=== PATIENT | female | born 1940 | race Caucasian/White ===

== ENCOUNTER 2020-08-10 17:42 | Emergency (ER) | payer MEDICARE, OTHER, SELFPAY ==
[2020-08-10] VITALS (7 sets, daily range): BP systolic 140–143; BP diastolic 61–65; PULSE 68–75; RESP 16–24; TEMP 36.8; O2SAT 93–99
--- NOTE | 2020-08-10 18:11 | DI.RAD.S_ITS ---
PROCEDURE: XR CHEST 1V INDICATIONS: dizziness headache TECHNIQUE: One view of the chest was acquired. COMPARISON: [facility], , CHEST 1 VIEW, 02/12/2017, 7:22. FINDINGS: Surgical changes and devices: Fusion hardware in visualized lower thoracic and upper lumbar spine is seen. Lungs and pleura: Lungs are clear. No pleural effusions or pneumothorax. Mediastinum: Mediastinal contours appear normal. Heart size is normal. Bones and chest wall: No suspicious bony lesions. Overlying soft tissues appear unremarkable. IMPRESSION: No acute cardiopulmonary pathology. Dictated by: David Escobar M.D. on 08/10/2020 at 17:48 Approved by: David Escobar M.D. on 08/10/2020 at 17:54
--- NOTE | 2020-08-10 18:11 | DI.CT.S_ITS ---
PROCEDURE: CT HEAD/BRAIN WO CON INDICATIONS: dizziness, headache TECHNIQUE: Noncontrast 4.5 mm thick angled axial sections acquired from the foramen magnum to the vertex, with coronal and sagittal reformats. For radiation dose reduction, the following was used: automated exposure control, adjustment of mA and/or kV according to patient size. COMPARISON: None. FINDINGS: Image quality: Excellent. CSF spaces: Basal cisterns are patent. No extra-axial fluid collections. The ventricles are symmetric in size and shape. Brain: No intracranial bleeds or masses. Old lacunar infarct in right basal ganglia is seen. There is cerebral volume loss for age, with resultant ventricular and sulcal prominence. There are periventricular and deep white matter chronic small vessel ischemic changes. There is intracranial internal carotid artery atherosclerosis. Skull and face: Calvarium and visualized facial bones appear intact, without suspicious lesions. Sinuses: Visualized sinuses and mastoids are clear. IMPRESSION: 1. No CT evidence of acute intracranial pathology. 2. Age-appropriate atrophy and mild to moderate white matter chronic ischemic microangiopathic changes. Old lacunar infarct in right basal ganglia. Dictated by: David Escobar M.D. on 08/10/2020 at 17:30 Approved by: David Escobar M.D. on 08/10/2020 at 17:31
[2020-08-10 19:13] LABS: Add Manual Diff / Slide Review NO; Basophils Absolute Auto 0 /uL (0-100); Basophils Percent Auto 1.3 % (0-2); Eosinophils Absolute Auto 100 /uL (0-450); Eosinophils Percent Auto 3.3 % (2-4); Hematocrit 39.8 % (36-46); Hemoglobin 13.4 g/dL (12.0-16.0); Lymphocytes Absolute Auto 1300 /uL (1100-4500); Lymphocytes Percent Auto 35.6 % (25-40); Mean Corpuscular HGB Conc 33.5 % (30-36); Mean Corpuscular Hemoglobin 30.5 PG (26-34); Mean Corpuscular Volume 90.9 fL (80-100); Monocytes Absolute Auto 200 /uL (0-900); Monocytes Percent Auto 5.8 % (3-14); Neutrophils Absolute Auto 1900 /uL (1500-7000); Platelet Count 201 X10^3/uL (150-400); Red Blood Cell Count 4.38 X10^6/uL (4.0-5.2); White Blood Cell Count 3.6 X10^3/uL (4.5-11.0)
[2020-08-10 19:16] LABS: Prothrombin Time 11.9 SECONDS (10.1-12.7)
[2020-08-10 19:21] LABS: Alanine Aminotransferase 25 IU/L (<35); Albumin Globulin Ratio 1.5 (1.0-2.8); Alkaline Phosphatase 65 U/L (38-126); Aspartate Aminotransferase 31 IU/L (14-36); BUN Creatinine Ratio 22.2 (6-22); Bilirubin Total 0.5 mg/dL (0.2-1.3); Blood Urea Nitrogen 12 mg/dL (7-17); Calcium 9.5 mg/dL (8.4-10.2); Carbon Dioxide 28 mmol/L (22-32); Chloride 106 mmol/L (98-107); Estimated Glomerular Filt Rate > 60.0 mL/min (>60); Globulin 2.7 g/dL (1.7-4.1); Glucose 95 mg/dL (80-110); HEMOLYSIS < 15 (0-50); Lactate (Lactic Acid) 1.9 mmol/L (0.7-2.1); Potassium 4.1 mmol/L (3.4-5.1); Sodium 140 mmol/L (137-145); Total Protein 6.7 g/dL (6.3-8.2)
--- NOTE | 2020-08-10 19:23 | ED.DIZZY ---
HPI - Dizziness General Chief Complaint: Dizziness Stated Complaint: DIZZY LIGHT HEADED UNABLE TO COMMUNICATE WELL Time Seen by Provider: 08/10/20 18:11 Source: patient and family () Mode of arrival: Wheelchair Limitations: no limitations History of Present Illness HPI Narrative: This is a 79-year-old female who arrives with complaint of dizziness. She describes as the room spinning when she moves her head or body. Patient states she had 1 prior episode many decades ago. She states this started Monday sort of gradually increasing. It has continued for the last 3 days. It sort of waxes and wanes in intensity but she states not improving maybe even worsening a little bit. Moving her head, or moving her body quickly worsens her symptoms. She has had a headache pulled on the left side that is been dull since then. She denies any new vision changes. She does have chronic diplopia when she does not wear her glasses. She denies any dysarthria but states she feels like her word-finding has been more difficult. He list is her 2nd language, her is present and states he has not appreciated any difficulty with her word-finding but states she may not have been talking when she had difficulty finding words. She denies any new numbness, tingling or weakness. She does have left lower extremity weakness and mild ataxia secondary to a L3-L4 nerve root injury/back surgery. She has not appreciated any worsening. She states her quad muscles do not work well. She has noted that she feels a little bit more unstable and uses either a walker or furniture to hang onto at home since developing her vertigo type symptoms. No fevers, no cold cough or congestion. She has had some mild nausea but no vomiting. No chest pain, no shortness of breath. Denies any urinary symptoms. She has had chronic IBS symptoms and had increasing episodes more than once a month over the last several years and more increasing episodes of diarrhea that tend to last longer. Her most recent episode ended around Monday. She takes medication for dyslipidemia, mood and anxiety, back pain as well as hypothyroidism. Her prior surgeries include L3-4 back surgery and cholecystectomy. No tobacco less of wine nightly with no illicit. She lives with her on [address] and follows with Dr. Walton. Related Data Home Medications Medication Instructions Recorded Confirmed CA PANTOTHENATE/FOLIC ACID/VIT 1 tab PO QDAY #0 12/29/10 (MULTIVITAMIN) [FOLIC ACID] #0 12/29/10 [VITAMIN D] 2,000 iu PO QDAY #0 12/29/10 escitalopram oxalate [Lexapro] 10 mg PO QDAY #0 04/30/12 cyanocobalamin (vitamin B-12) 500 mcg PO QDAY #0 07/08/16 [Vitamin B-12] Previous Rx's Medication Instructions Recorded metronidazole 0.75 % TOPICAL QDAY #135 ml 02/25/16 almotriptan malate [Axert] 12.5 mg PO SEE INSTRUCTIONS #6 tab 06/21/16 atorvastatin [Lipitor] 20 mg PO HS #90 tab 06/21/16 cyclobenzaprine 10 mg PO HS #90 tab 06/21/16 zolpidem 5 mg PO HSP PRN #30 tab 06/21/16 diphenoxylate-atropine 1 tab PO SEE INSTRUCTIONS #20 tab 07/08/16 raloxifene [Evista] 60 mg PO QDAY #30 tab 09/13/16 albuterol sulfate [Ventolin HFA] 0 puff INH PRN PRN #1 puff 11/04/16 gabapentin [Neurontin] 1,200 mg PO QID #240 tab 01/31/17 aspirin 81 mg PO BID #60 tab 02/13/17 levofloxacin [Levaquin] 500 mg PO QDAY #3 tab 02/13/17 oxycodone 5 - 10 mg PO Q3HP PRN #60 tab 02/13/17 amoxicillin 500 mg PO BID #180 cap 03/02/17 meclizine 25 mg PO TID PRN #20 tab 08/10/20 Allergies Allergy/AdvReac Type Severity Reaction Status Date / Time adhesive Allergy Severe RASH Verified 08/10/20 17:48 nickel [NICKEL] Allergy Intermediate RASH Verified 08/10/20 17:48 morphine [MORPHINE] Allergy Unknown Verified 08/10/20 17:48 haloperidol AdvReac Mild HALLUCINATI Verified 08/10/20 17:48 ONS Review of Systems Review of Systems ROS Unobtainable: All systems reviewed & are unremarkable except as noted in HPI and below Patient History Social History Smoking Status: Former smoker Smoking Status: Former smoker alcohol intake frequency: 0-2 drinks per day Substance Use Type: does not use Exam Narrative Exam Narrative: GEN: well nourished, well appearing female, alert and oriented x 3, patient appears to be in mild distress. HEENT: Atraumatic, pupils are equal round reactive to light, extraocular movements are intact, no nystagmus, nares are clear, TMs are clear with no fluid, there is no conjunctival pallor. Throat is clear without any exudates, erythema, tonsillar enlargement or uvular deviation HEART: Regular rate and rhythm without murmur, clicks, rubs. Pulses are equal in upper and lower extremities LUNGS:Lungs clear to auscultation, no wheezes, rales, crackles, chest moves symmetrically, no tachypnea accessory muscle use. ABD:bowel sounds normal, soft, non-tender, no guarding, rebound, rigidity, no masses noted, no hepatosplenomegaly :No CVA tenderness MSCL: Non-tender, no muscle atrophy, muscles strength 5/5 upper and lower extremities except for 3/5 on left leg not new for patient. NEURO:CN 2-12 intact, sensation normal,finger nose finger test normal, heel munoz test normal with right leg, difficulty with left leg which is not new for patient. Initial Vital Signs Initial Vital Signs: Vital Signs Temperature 98.2 F 08/10/20 17:45 Pulse Rate 71 08/10/20 17:45 Respiratory Rate 18 08/10/20 17:45 Blood Pressure 143/61 H 08/10/20 17:45 Pulse Oximetry 97 08/10/20 17:45 Scores NIH Stroke Scale Level of Conciousness: Alert, keenly responsive Ask month/age: Answers both questions correctly. Open/close eyes, close hand: Performs both tasks correctly Best gaze horizontal: Normal Visual andrea: No visual loss Facial palsy: Normal symetrical movement Left arm drift: No drift for full 10 sec Right arm drift: No drift for full 10 sec Left leg drift: No drift for full 5 sec Right leg drift: Some effort against gravity, cannot maintain, drifts down to bed (not new for patient) Limb ataxia: Present in one limb (not new for patient) Sensory on face/arms/legs: Normal, no sensory loss Best language: No aphasia, normal Dysarthria: Normal Extinction or inattention: No abnormality Total NIH Stroke scale score: 3 Course Orders Ordered: ED Orders 08/10/20 18:11 CT head/brain wo con Stat XR chest 1V Stat 08/10/20 19:00 Complete Blood Count AUTO DIFF Stat Comprehensive Metabolic Panel Stat Lactate (Lactic Acid) Stat Prothrombin Time INR Stat Troponin I Stat 08/10/20 19:55 CT angio head and neck Stat 08/10/20 20:00 Urinalysis and Microscopic Stat Discontinued Medications Meclizine HCl (Meclizine Hcl 12.5 Mg Tablet) 50 mg PO NOW ONE Stop: 08/10/20 19:56 Last Admin: 08/10/20 20:18 Dose: 50 mg Documented by: SANJUANA Reevaluation(s) Reevaluation #1: Patient significantly improved with meclizine. Reviewed labs, imaging and findings today. Suspect more benign cause of her vertigo and plan for meclizine prn, follow up with PCP or ENT as needed. Time: 21:12 Vital Signs Vital signs: Vital Signs - 8 hr 08/10/20 19:47 08/10/20 20:00 08/10/20 20:30 Pulse Rate 70 75 69 Respiratory Rate 16 21 Blood Pressure Pulse Oximetry 93 99 97 08/10/20 21:00 08/10/20 21:13 08/10/20 21:14 Pulse Rate 68 70 70 Respiratory Rate 24 18 Blood Pressure 140/65 Pulse Oximetry 97 96 96 MDM - Dizziness Lab Data Result diagrams: 08/10/20 19:00 08/10/20 19:00 Labs: Lab Results 08/10/20 08/10/20 08/10/20 Range/Units 19:00 19:00 19:00 WBC 3.6 L (4.5-11.0) X10^3/uL RBC 4.38 (4.0-5.2) X10^6/uL Hgb 13.4 (12.0-16.0) g/dL Hct 39.8 (36-46) % MCV 90.9 (80-100) fL MCH 30.5 (26-34) PG MCHC 33.5 (30-36) % RDW 14.0 (11.6-14.8) % Plt Count 201 (150-400) X10^3/uL Neut % (Auto) 54.0 (50-75) % Lymph % (Auto) 35.6 (25-40) % [place] % (Auto) 5.8 (3-14) % Eos % (Auto) 3.3 (2-4) % Baso % (Auto) 1.3 (0-2) % Neut # (Auto) 1900 (0029-0412) /uL Lymph # (Auto) 1300 (3989-6862) /uL [place] # (Auto) 200 (0-900) /uL Eos # (Auto) 100 (0-450) /uL Baso # (Auto) 0 (0-100) /uL PT 11.9 (10.1-12.7) SECONDS INR 1.0 (0.9-1.3) Sodium 140 (137-145) mmol/L Potassium 4.1 (3.4-5.1) mmol/L Chloride 106 (98-107) mmol/L Carbon Dioxide 28 (22-32) mmol/L BUN 12 (7-17) mg/dL Creatinine 0.54 (0.52-1.04) mg/dL Estimated GFR > 60.0 (>60) mL/min BUN/Creatinine Ratio 22.2 H (6-22) Glucose 95 (80-110) mg/dL Lactate (0.7-2.1) mmol/L Calcium 9.5 (8.4-10.2) mg/dL Total Bilirubin 0.5 (0.2-1.3) mg/dL AST 31 (14-36) IU/L ALT 25 (<35) IU/L Alkaline Phosphatase 65 (38-126) U/L Troponin I < 0.012 (0.01-0.034) ng/mL Total Protein 6.7 (6.3-8.2) g/dL Albumin 4.0 (3.5-5.0) g/dL Globulin 2.7 (1.7-4.1) g/dL Albumin/Globulin Ratio 1.5 (1.0-2.8) Urine Color Urine Appearance Urine pH (4.5-8.0) Ur Specific [place] (1.000-1.035) Urine Protein (Negative) Urine Glucose (UA) (Negative) g/dL Urine Ketones (NEGATIVE) Urine Occult Blood (Negative) Urine Nitrate (Negative) Urine Bilirubin (NEGATIVE) Urine Urobilinogen (0.2) E.U./dL Ur Leukocyte Esterase (NEGATIVE) Urine RBC (0-5/HPF) Urine WBC (0-5/HPF) Ur Transition Epith Cell (0-5/HPF) Urine Bacteria (None) Ur Culture Indicated? 08/10/20 08/10/20 Range/Units 19:00 20:00 WBC (4.5-11.0) X10^3/uL RBC (4.0-5.2) X10^6/uL Hgb (12.0-16.0) g/dL Hct (36-46) % MCV (80-100) fL MCH (26-34) PG MCHC (30-36) % RDW (11.6-14.8) % Plt Count (150-400) X10^3/uL Neut % (Auto) (50-75) % Lymph % (Auto) (25-40) % [place] % (Auto) (3-14) % Eos % (Auto) (2-4) % Baso % (Auto) (0-2) % Neut # (Auto) (5828-9616) /uL Lymph # (Auto) (1402-0403) /uL [place] # (Auto) (0-900) /uL Eos # (Auto) (0-450) /uL Baso # (Auto) (0-100) /uL PT (10.1-12.7) SECONDS INR (0.9-1.3) Sodium (137-145) mmol/L Potassium (3.4-5.1) mmol/L Chloride (98-107) mmol/L Carbon Dioxide (22-32) mmol/L BUN (7-17) mg/dL Creatinine (0.52-1.04) mg/dL Estimated GFR (>60) mL/min BUN/Creatinine Ratio (6-22) Glucose (80-110) mg/dL Lactate 1.9 (0.7-2.1) mmol/L Calcium (8.4-10.2) mg/dL Total Bilirubin (0.2-1.3) mg/dL AST (14-36) IU/L ALT (<35) IU/L Alkaline Phosphatase (38-126) U/L Troponin I (0.01-0.034) ng/mL Total Protein (6.3-8.2) g/dL Albumin (3.5-5.0) g/dL Globulin (1.7-4.1) g/dL Albumin/Globulin Ratio (1.0-2.8) Urine Color Yellow Urine Appearance Clear Urine pH 6.0 (4.5-8.0) Ur Specific [place] 1.015 (1.000-1.035) Urine Protein Negative (Negative) Urine Glucose (UA) Negative (Negative) g/dL Urine Ketones Negative (NEGATIVE) Urine Occult Blood Negative (Negative) Urine Nitrate Negative (Negative) Urine Bilirubin Negative (NEGATIVE) Urine Urobilinogen 0.2 (0.2) E.U./dL Ur Leukocyte Esterase Negative (NEGATIVE) Urine RBC None seen (0-5/HPF) Urine WBC None seen (0-5/HPF) Ur Transition Epith Cell 0-1/hpf (0-5/HPF) Urine Bacteria None seen (None) Ur Culture Indicated? Cult not indicated Imaging Data CT scan - head: Radiologist's Impression: [address] [id number] Scan ReportSigned Patient: Violeta Ray SMR#: [id number]: 9Acct:[id number]/Sex: 79 / FDate of Service: 08/10/20Loc: EDAccession Number: [id number] Procedure: CT head/brain wo con Ordering Provider: Imani Hassan D.O. PROCEDURE: CT HEAD/BRAIN WO CON INDICATIONS: dizziness, headache TECHNIQUE: Noncontrast 4.5 mm thick angled axial sections acquired from the foramen magnum to the vertex, with coronal and sagittal reformats. For radiation dose reduction, the following was used: automated exposure control, adjustment of mA and/or kV according to patient size. COMPARISON: None. FINDINGS: Image quality: Excellent. CSF spaces: Basal cisterns are patent. No extra-axial fluid collections. The ventricles are symmetric in size and shape. Brain: No intracranial bleeds or masses. Old lacunar infarct in right basal ganglia is seen. There is cerebral volume loss for age, with resultant ventricular and sulcal prominence. There are periventricular and deep white matter chronic small vessel ischemic changes. There is intracranial internal carotid artery atherosclerosis. Skull and face: Calvarium and visualized facial bones appear intact, without suspicious lesions. Sinuses: Visualized sinuses and mastoids are clear. IMPRESSION: 1. No CT evidence of acute intracranial pathology. 2. Age-appropriate atrophy and mild to moderate white matter chronic ischemic microangiopathic changes. Old lacunar infarct in right basal ganglia. Dictated by: David Escobar M.D. on 08/10/2020 at 17:30 Approved by: David Escobar M.D. on 08/10/2020 at 17:31 Chest x-ray: Radiologist's Impression: [address] [id number] ReportSigned Patient: Violeta Ray [facility]#: [id number]: 9Acct:[id number]/Sex: 79 / FDate of Service: 08/10/20Loc: EDAccession Number: [id number] Procedure: XR chest 1V Ordering Provider: Imani Hsasan D.O. PROCEDURE: XR CHEST 1V INDICATIONS: dizziness headache TECHNIQUE: One view of the chest was acquired. COMPARISON: [facility], CHEST 1 VIEW, 02/12/2017, 7:22. FINDINGS: Surgical changes and devices: Fusion hardware in visualized lower thoracic and upper lumbar spine is seen. Lungs and pleura: Lungs are clear. No pleural effusions or pneumothorax. Mediastinum: Mediastinal contours appear normal. Heart size is normal. Bones and chest wall: No suspicious bony lesions. Overlying soft tissues appear unremarkable. IMPRESSION: No acute cardiopulmonary pathology. Dictated by: David Escobar M.D. on 08/10/2020 at 17:48 Approved by: David Escobar M.D. on 08/10/2020 at 17:54 ECG Data Attestation: I personally reviewed and interpreted this ECG as follows: Interpretation: Sinus rhythm with frequent PVCs, rate of 70, NM 160, QRS is 72 and QTC of 462, no ST elevation depression noted. [facility] Narrative Medical decision making narrative: 79-year-old female with 3 days of vertigo type symptoms with 1 prior episode several decades ago. Patient has not had resolution of her symptoms over the last several days as they have continued she feels slightly unstable. Labs show a mild leukopenia which appears chronic. No other major lab abnormalities, urine is negative. Head CT shows chronic changes with possible old lacunar infarct, x-ray does not acute pathology. NIH is 3 but this is secondary to patient's chronic medical/physical changes with no new changes noted. CTA is negative for acute change, thrombosis, ect. Patient feels much better after meclizine and plan for d/c home. Follow up with PCP and ENT which patient states she has done in the past with remote prior episode. Discharge Plan Departure Patient Disposition: Home Clinical Impression: Vertigo Instructions: DI for Vertigo Activity Restrictions/Additional Instructions: Follow up with your physician this week for recheck. You may continue meclizine 1 tablet every 8 hours as needed for symptoms. You may continue home medications as prescribed. Return for new or worsening symptoms, if you feel unsafe ambulating, severe headaches, new vision changes, difficulty with speech, new chest pain, shortness of breath, passing out, persistent vomiting, new weakness, numbness or inability use her extremities or other new or concerning symptoms. Prescriptions: New meclizine 25 mg tablet 25 mg PO TID PRN (Reason: dizziness) Qty: 20 RF: 0 No Action [FOLIC ACID] Qty: 0 RF: 0 [VITAMIN D] 2,000 iu PO QDAY Qty: 0 RF: 0 CA PANTOTHENATE/FOLIC ACID/VIT (MULTIVITAMIN) 1 tab PO QDAY Qty: 0 RF: 0 escitalopram oxalate [Lexapro] 10 MG tablet 10 mg PO QDAY Qty: 0 RF: 0 metronidazole 0.75 % gel 0.75 % Topical QDAY Qty: 135 RF: 0 cyclobenzaprine 10 MG tablet 10 mg PO HS Qty: 90 RF: 3 atorvastatin [Lipitor] 20 MG tablet 20 mg PO HS Qty: 90 RF: 3 zolpidem 5 MG tablet 5 mg PO HSP PRNQty: 30 RF: 5 almotriptan malate [Axert] 12.5 MG tablet 12.5 mg PO SEE INSTRUCTIONS Qty: 6 RF: 3 diphenoxylate-atropine 2.5 MG/0.025 MG tablet 1 tab PO SEE INSTRUCTIONS Qty: 20 RF: 0 cyanocobalamin (vitamin B-12) [Vitamin B-12] 500 MCG tablet 500 mcg PO QDAY Qty: 0 RF: 0 raloxifene [Evista] 60 MG tablet 60 mg PO QDAY Qty: 30 RF: 11 albuterol sulfate [Ventolin HFA] 90 MCG/PUFF HFA aerosol inhaler 0 puff INH PRN PRNQty: 1 RF: 0 gabapentin [Neurontin] 600 MG tablet 1,200 mg PO QID Qty: 240 RF: 2 levofloxacin [Levaquin] 500 MG tablet 500 mg PO QDAY Qty: 3 RF: 0 aspirin 81 MG tablet,delayed release (DR/EC) 81 mg PO BID Qty: 60 RF: 1 oxycodone 5 MG tablet 5 - 10 mg PO Q3HP PRNQty: 60 RF: 0 amoxicillin 500 MG capsule 500 mg PO BID Qty: 180 RF: 0 Referrals: Clay Walton MD [Primary Care Provider] -
[2020-08-10 19:41] LABS: Troponin I < 0.012 ng/mL (0.01-0.034)
--- NOTE | 2020-08-10 19:55 | DI.CT.S_ITS ---
PROCEDURE: CT ANGIO HEAD AND NECK INDICATIONS: vertigo x 3 days, slowly worsening TECHNIQUE: After the administration of intravenous contrast, 1 mm thick sections acquired from the aortic arch through the [place] of [place]. Post-contrast 4.5 mm thick sections then re-acquired from the foramen magnum to the vertex. 3-dimensional qnoiprz-rgehldtyc-bboazadzij (MIP) and/or volume rendering reformats were acquired of the central intracranial vasculature and neck separately. COMPARISON: None. FINDINGS: Image quality: Excellent. BRAIN: CSF spaces: Ventricles are normal in size and shape. Basal cisterns are patent. No extra-axial fluid collections. Brain: No midline shift. No intracranial bleeds or masses. [place]-white matter interface appears intact. Skull and face: Calvarium and facial bones appear intact, without suspicious lesions. Orbits appear normal. Sinuses: Sinuses and mastoids are clear. HEAD CT ANGIOGRAPHY: Anterior circulation: Intracranial internal carotid arteries are normal in size and flow. The flow within the paired anterior cerebral arteries is normal and symmetric. The flow within the middle cerebral arteries is normal and symmetric. The anterior communicating artery is seen. No aneurysms are seen. Posterior circulation: Visualized portions of the vertebral arteries demonstrate normal caliber, and join to form a normal appearing basilar artery. Flow within the posterior cerebral arteries is normal and symmetric. No aneurysms are seen. NECK CT ANGIOGRAPHY: Carotid system: The great vessels demonstrate a conventional anatomy as they arise from the aortic arch. The origins of the common carotid arteries appear patent. The common carotid arteries demonstrate normal caliber and courses. The bifurcation regions are both widely patent. The internal carotid arteries demonstrate normal calibers and courses. Posterior circulation: The origins of the vertebral arteries both appear widely patent. The more superior extracranial portions of both vertebral arteries also demonstrate normal courses and calibers. They join to form a normal appearing basilar artery. Soft tissues: Visualized neck soft tissues demonstrate no suspicious abnormalities. Bones: No suspicious bony lesions. Visualized cervical spine appears normally aligned. IMPRESSION: No evidence of hemorrhage or ischemic injury involving the brain parenchyma. No mass lesion or mass effect found. No vascular abnormality seen. Source of current symptoms of vertigo persisting for 3 days is not Any quantitative measurements of stenosis were performed using NASCET criteria. Dictated by: Naveen Hopper M.D. on 08/10/2020 at 20:46 Approved by: Naveen Hopper M.D. on 08/10/2020 at 21:01
--- NOTE | 2020-08-10 20:05 | PC.NURSE ---
Patient has ongoing baseline weakness to left leg.
[2020-08-10 20:06] LABS: Bacteria Urine None Seen; RBC Urine None Seen (0-5/HPF); WBC Urine None Seen (0-5/HPF)
--- NOTE | 2020-08-10 20:06 | PC.NURSE ---
Patient has ongoing baseline right leg weakness from back injury.
[2020-08-10 20:14] LABS: Appearance Urine UA CLEAR; Bilirubin Urine UA NEGATIVE (NEGATIVE); Color Urine UA YELLOW; Glucose Urine UA NEGATIVE (Negative); Ketones Urine UA NEGATIVE (NEGATIVE); Leukocyte Esterase Urine UA NEGATIVE (NEGATIVE); Nitrite Urine UA NEGATIVE (Negative); Occult Blood Urine UA NEGATIVE (Negative); Protein Urine UA NEGATIVE (Negative); Specific Gravity Urine UA 1.015 (1.000-1.035); Urobilinogen Urine UA 0.2 E.U./dL (0.2)
[2020-08-10] MEDS: MECLIZINE HCL 12.5 MG TABLET 50 MG PO (20:18)
[2020-08-10 20:23] LABS: Culture Indicated Urine Cult Not Indicated; Transitional Epi Cells Urine 0-1/HPF (0-5/HPF)
== END 2020-08-10 21:21 | disposition home or self-care (01) ==
PROVIDERS: Emergency Medicine; Emergency Provider Emergency Medicine; Family Provider Family Medicine; PCP Family Medicine
DX: R42 Dizziness and giddiness (principal); R51.9 Headache, unspecified; R11.0 Nausea; M54.2 Cervicalgia; E78.5 Hyperlipidemia, unspecified; E03.9 Hypothyroidism, unspecified; F41.9 Anxiety disorder, unspecified
CPT/HCPCS: 36415; 70450; 70496; 70498; 71045; 80053; 81001; 83605; 84484; 85025; 85610; 93005; 99284; 99285; Q9967

== ENCOUNTER 2022-03-31 12:26 | Emergency (ER) | payer MEDICARE, OTHER, SELFPAY ==
[2022-03-31] VITALS (13 sets, daily range): BP systolic 113–158; BP diastolic 60–73; PULSE 59–72; RESP 12–18; TEMP 36.6; O2SAT 91–98; BMI 25.8
--- NOTE | 2022-03-31 12:23 | DI.RAD.S_ITS ---
PROCEDURE: XR CHEST 1V INDICATIONS: fall no thinners TECHNIQUE: One view of the chest was acquired. COMPARISON: [facility], CR, XR CHEST 1V, 08/10/2020, 18:20. FINDINGS: Surgical changes and devices: None. Lungs and pleura: Lungs are clear. No pleural effusions or pneumothorax. Mediastinum: Mediastinal contours appear normal. Heart size is normal. Bones and chest wall: No suspicious bony lesions. Overlying soft tissues appear unremarkable. Postoperative changes of pedicular screw and sonja fixation spanning the lower thoracic and upper lumbar spine. There is leftward curvature of the thoracic spine. IMPRESSION: No acute abnormality of the chest. Dictated by: Ry Moya M.D. on 03/31/2022 at 12:49 Approved by: Ry Moya M.D. on 03/31/2022 at 12:51
--- NOTE | 2022-03-31 12:23 | DI.CT.S_ITS ---
PROCEDURE: CT HEAD/BRAIN WO CON INDICATIONS: fall no thinners TECHNIQUE: Noncontrast 4.5 mm thick angled axial sections acquired from the foramen magnum to the vertex, with coronal and sagittal reformats. For radiation dose reduction, the following was used: automated exposure control, adjustment of mA and/or kV according to patient size. COMPARISON: [facility], CT, CT HEAD/BRAIN WO CON, 08/10/2020, 18:19. FINDINGS: Image quality: Excellent. CSF spaces: Basal cisterns are patent. No extra-axial fluid collections. The ventricles are symmetric in size and shape. Brain: No intracranial bleeds or masses. There is cerebral volume loss for age, with resultant ventricular and sulcal prominence. There are periventricular and deep white matter chronic small vessel ischemic changes. There is intracranial internal carotid artery atherosclerosis. Skull and face: Calvarium and visualized facial bones appear intact, without suspicious lesions. Sinuses: Visualized sinuses and mastoids are clear. IMPRESSION: 1. No acute intracranial abnormality. 2. Cerebral volume loss and small vessel ischemic changes. Dictated by: Ry Moya M.D. on 03/31/2022 at 13:58 Approved by: Ry Moya M.D. on 03/31/2022 at 14:00
--- NOTE | 2022-03-31 12:23 | DI.CT.S_ITS ---
PROCEDURE: CT CERVICAL SPINE WO CON INDICATIONS: fall no thinners TECHNIQUE: Noncontrast 3 mm thick sections acquired from the skull base to the T4 level. Sagittal and coronal reformats were then constructed. For radiation dose reduction, the following was used: automated exposure control, adjustment of mA and/or kV according to patient size. COMPARISON: None. FINDINGS: Image quality: Excellent. Bones: No fractures or dislocations. Visualized superior ribs are intact. Multilevel degenerative changes of the cervical spine. C5-6, C6-7, and C7-T1 have disc space narrowing, disc osteophytes, and mild foraminal stenosis bilaterally. Soft tissues: Prevertebral soft tissues are normal in thickness. No paravertebral hematomas. No apical pneumothoraces. IMPRESSION: No acute traumatic abnormality of the cervical spine. Dictated by: Ry Moya M.D. on 03/31/2022 at 14:51 Approved by: Ry Moya M.D. on 03/31/2022 at 14:53
--- NOTE | 2022-03-31 12:40 | ED_ITS ---
HPI - Head Injury <Ani Marks, [facility] - Last Filed: 03/31/22 18:00> General Chief complaint: Fall Stated complaint: Head injury,no thinners Time Seen by Provider: 03/31/22 12:35 History of Present Illness HPI Narrative: This is a 81-year-old female who lives on [address] and had a mechanical fall last evening at 21:00 and has a contusion to her right forehead and in her right temporal region with tenderness to palpation and was flown here today by [employer] [facility] for ongoing headache, nausea this morning, not feeling quite herself afterwards. She denies any other injury, states she has a right shoulder rotator cuff issue and it has been painful and she may have exacerbated it but denies any new range of motion deficits or sensations. 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 She denies any worsening of this today and endorses that her quad muscles do not work well. She denies any recent illness, denies any chest pain, shortness of breath, dysuria, abdominal pain, or other new extremity pain. E and states this is her baseline. She has history of cholecystectomy, was seen in the emergency department in 2020 for dizziness, this was her 2nd episode of this and stated that it had been increasing over 1 week. Patient states that she has had a headache and not feeling well with mild dizziness today, Related Data Home Medications Medication Instructions Recorded Confirmed CA PANTOTHENATE/FOLIC ACID/VIT 1 tab PO QDAY ##0 12/29/10 (MULTIVITAMIN) [FOLIC ACID] ##0 12/29/10 [VITAMIN D] 2,000 iu PO QDAY ##0 12/29/10 escitalopram oxalate 10 mg tablet 10 mg PO QDAY ##0 04/30/12 (Lexapro) cyanocobalamin (vitamin B-12) 500 500 mcg PO QDAY ##0 07/08/16 mcg tablet (Vitamin B-12) Previous Rx's Medication Instructions Recorded metronidazole 0.75 % topical gel 0.75 % topical QDAY #135 mL 02/25/16 almotriptan malate 12.5 mg tablet 12.5 mg PO SEE INSTRUCTIONS #6 tabs 06/21/16 (Axert) atorvastatin 20 mg tablet (Lipitor) 20 mg PO HS #90 tabs 06/21/16 cyclobenzaprine 10 mg tablet 10 mg PO HS #90 tabs 06/21/16 zolpidem 5 mg tablet 5 mg PO HSP PRN #30 tabs 06/21/16 diphenoxylate-atropine 2.5 1 tab PO SEE INSTRUCTIONS #20 tabs 07/08/16 mg-0.025 mg tablet raloxifene 60 mg tablet (Evista) 60 mg PO QDAY #30 tabs 09/13/16 albuterol sulfate 90 mcg/actuation 0 puff INH PRN PRN #1 puff 11/04/16 aerosol inhaler (Ventolin HFA) gabapentin 600 mg tablet 1,200 mg PO QID #240 tabs 01/31/17 (Neurontin) aspirin 81 mg tablet,delayed 81 mg PO BID #60 tabs 02/13/17 release levofloxacin 500 mg tablet 500 mg PO QDAY #3 tabs 02/13/17 (Levaquin) oxycodone 5 mg tablet 5 - 10 mg PO Q3HP PRN #60 tabs 02/13/17 amoxicillin 500 mg capsule 500 mg PO BID #180 caps 03/02/17 meclizine 25 mg tablet 25 mg PO TID PRN dizziness #20 tabs 08/10/20 Allergies Allergy/AdvReac Type Severity Reaction Status Date / Time adhesive Allergy Severe RASH Verified 08/10/20 17:48 nickel [NICKEL] Allergy Intermediate RASH Verified 08/10/20 17:48 morphine [MORPHINE] Allergy Unknown Verified 08/10/20 17:48 haloperidol AdvReac Mild HALLUCINATI Verified 08/10/20 17:48 ONS Review of Systems <ZENAIDA Cox - Last Filed: 03/31/22 18:00> Review of Systems Narrative: Review of systems is negative for acute abnormalities unless otherwise noted in HPI Patient History <ZENAIDA Cox - Last Filed: 03/31/22 18:00> Social History Smoking Status: Former smoker Smoking Status: Former smoker alcohol intake frequency: 0-2 drinks per day Substance Use Type: does not use Exam <ZENAIDA Cox - Last Filed: 03/31/22 18:00> Narrative Exam Narrative: Reviewed vitals signs and nursing notes. General: cooperative, comfortable, in no acute distress, well groomed, alert and oriented x3, pleasant and without dysarthria or slurred speech HEENT: symmetrical facial expressions, moist mucous membranes, EOMI, contusion and bump on the right upper forehead approximately 3 cm x 2 cm without wound, tenderness with an abrasion along her right buddhism above her maxillary bone, no tenderness to facial bones including nasal bones or mandible, without stridor, difficulty swallowing or speaking Cardiovascular: regular rate and rhythm, no peripheral edema, warm extremities Respiratory: normal effort, able to speak in complete sentences, without wheezing, stridor, or abnormal breath sounds. No retractions or tachypnea. GI: abdomen soft, nontender to palpation, nondistended, without masses, rebound tenderness or exquisite tenderness with exam. MSK: moves all extremities, neurovascularly intact, no weakness, normal tone, full range of motion of right shoulder without new weakness or strength deficits, brisk cap refill in all extremities without peripheral edema Skin: brisk capillary refill, without pallor or erythema, scab to right frontal contusion without bleeding Neuro: normal speech and cognition, A&O x3, ambulatory, clear speech, without new focal neuro deficit Psych: mental status is grossly normal, congruent mood, normal affect, pleasant and cooperative Initial Vital Signs Initial Vital Signs: Vital Signs Temperature 98 F 03/31/22 12:25 Pulse Rate 66 03/31/22 12:25 Respiratory Rate 18 03/31/22 12:25 Blood Pressure 147/68 H 03/31/22 12:25 Pulse Oximetry 98 03/31/22 12:25 Oxygen Delivery Method 03/31/22 12:25 <Faby Slaughter DO - Last Filed: 04/01/22 01:30> Initial Vital Signs Initial Vital Signs: Vital Signs Temperature 98 F 03/31/22 12:25 Pulse Rate 66 03/31/22 12:25 Respiratory Rate 18 03/31/22 12:25 Blood Pressure 147/68 H 03/31/22 12:25 Pulse Oximetry 98 03/31/22 12:25 Oxygen Delivery Method 03/31/22 12:25 <Krishna Posada MD - Last Filed: 04/01/22 07:06> Initial Vital Signs Initial Vital Signs: Vital Signs Temperature 98 F 03/31/22 12:25 Pulse Rate 66 03/31/22 12:25 Respiratory Rate 18 03/31/22 12:25 Blood Pressure 147/68 H 03/31/22 12:25 Pulse Oximetry 98 03/31/22 12:25 Oxygen Delivery Method 03/31/22 12:25 Course <ZENAIDA Cox - Last Filed: 03/31/22 18:00> Orders Ordered: Discontinued Medications Acetaminophen (Acetaminophen 325 Mg Tablet) 650 mg PO NOW ONE Stop: 03/31/22 15:08 Last Admin: 03/31/22 15:33 Dose: 650 mg Documented By: ADRIAN Bacitracin (Bacitracin Oint 0.9 Gm Pckt) 1 applic TOP NOW ONE Stop: 03/31/22 12:45 Last Admin: 03/31/22 12:49 Dose: 1 applic Documented By: ANDREAS Diphenhydramine HCl (Diphenhydramine 50 Mg/Ml Vial) 12.5 mg IV NOW ONE Stop: 03/31/22 15:08 Last Admin: 03/31/22 15:33 Dose: 12.5 mg Documented By: ADRIAN Lactated Ringer's (Lactated Ringers) 500 mls @ 1,000 mls/hr IV BOLUS ONE Stop: 03/31/22 15:36 Last Infusion: 03/31/22 16:39 Dose: 0 mls/hr Documented By: Admin: 03/31/22 15:33 Dose: 1,000 mls/hr Documented By: ADRIAN Ondansetron HCl (Ondansetron 4 Mg Odt Prepack) 1 bottle MISC SEEINSTR ONE Stop: 03/31/22 15:10 Last Admin: 03/31/22 15:32 Dose: 1 bottle Documented By: ADRIAN Vital Signs Vital signs: Vital Signs - 8 hr 03/31/22 17:30 03/31/22 18:00 03/31/22 18:03 Pulse Rate 69 69 Blood Pressure 113/65 Pulse Oximetry 96 96 03/31/22 18:03 Pulse Rate 67 Blood Pressure Pulse Oximetry 95 <Faby Slaughter DO - Last Filed: 04/01/22 01:30> Orders Ordered: Discontinued Medications Acetaminophen (Acetaminophen 325 Mg Tablet) 650 mg PO NOW ONE Stop: 03/31/22 15:08 Last Admin: 03/31/22 15:33 Dose: 650 mg Documented By: NR Bacitracin (Bacitracin Oint 0.9 Gm Pckt) 1 applic TOP NOW ONE Stop: 03/31/22 12:45 Last Admin: 03/31/22 12:49 Dose: 1 applic Documented By: ANDRAES Diphenhydramine HCl (Diphenhydramine 50 Mg/Ml Vial) 12.5 mg IV NOW ONE Stop: 03/31/22 15:08 Last Admin: 03/31/22 15:33 Dose: 12.5 mg Documented By: ADRIAN Lactated Ringer's (Lactated Ringers) 500 mls @ 1,000 mls/hr IV BOLUS ONE Stop: 03/31/22 15:36 Last Infusion: 03/31/22 16:39 Dose: 0 mls/hr Documented By: Admin: 03/31/22 15:33 Dose: 1,000 mls/hr Documented By: ADRIAN Ondansetron HCl (Ondansetron 4 Mg Odt Prepack) 1 bottle MISC SEEINSTR ONE Stop: 03/31/22 15:10 Last Admin: 03/31/22 15:32 Dose: 1 bottle Documented By: ADRIAN Vital Signs Vital signs: Vital Signs - 8 hr 03/31/22 17:30 03/31/22 18:00 03/31/22 18:03 Pulse Rate 69 69 Blood Pressure 113/65 Pulse Oximetry 96 96 03/31/22 18:03 Pulse Rate 67 Blood Pressure Pulse Oximetry 95 <Krishna Posada MD - Last Filed: 04/01/22 07:06> Orders Ordered: Discontinued Medications Acetaminophen (Acetaminophen 325 Mg Tablet) 650 mg PO NOW ONE Stop: 03/31/22 15:08 Last Admin: 03/31/22 15:33 Dose: 650 mg Documented By: ADRIAN Bacitracin (Bacitracin Oint 0.9 Gm Pckt) 1 applic TOP NOW ONE Stop: 03/31/22 12:45 Last Admin: 03/31/22 12:49 Dose: 1 applic Documented By: ANDREAS Diphenhydramine HCl (Diphenhydramine 50 Mg/Ml Vial) 12.5 mg IV NOW ONE Stop: 03/31/22 15:08 Last Admin: 03/31/22 15:33 Dose: 12.5 mg Documented By: ADRIAN Lactated Ringer's (Lactated Ringers) 500 mls @ 1,000 mls/hr IV BOLUS ONE Stop: 03/31/22 15:36 Last Infusion: 03/31/22 16:39 Dose: 0 mls/hr Documented By: Admin: 03/31/22 15:33 Dose: 1,000 mls/hr Documented By: NR Ondansetron HCl (Ondansetron 4 Mg Odt Prepack) 1 bottle MISC SEEINSTR ONE Stop: 03/31/22 15:10 Last Admin: 03/31/22 15:32 Dose: 1 bottle Documented By: NR Vital Signs Vital signs: Vital Signs - 8 hr 03/31/22 17:30 03/31/22 18:00 03/31/22 18:03 Pulse Rate 69 69 Blood Pressure 113/65 Pulse Oximetry 96 96 03/31/22 18:03 Pulse Rate 67 Blood Pressure Pulse Oximetry 95 MDM - Head Injury <ZENAIDA Cox - Last Filed: 03/31/22 18:00> Lab Data Result diagrams: 03/31/22 12:21 03/31/22 12:21 Labs: Lab Results 03/31/22 03/31/22 03/31/22 Range/Units 12:21 12:21 12:21 WBC 3.6 L (4.5-11.0) X10^3/uL RBC 4.24 (4.0-5.2) X10^6/uL Hgb 12.7 (12.0-16.0) g/dL Hct 38.4 (36-46) % MCV 90.5 (80-100) fL MCH 29.9 (26-34) PG MCHC 33.1 (30-36) % RDW 14.7 (11.6-14.8) % Plt Count 207 (150-400) X10^3/uL Neut % (Auto) 55.2 (50-75) % Lymph % (Auto) 32.5 (25-40) % [place] % (Auto) 7.1 (3-14) % Eos % (Auto) 4.0 (2-4) % Baso % (Auto) 1.2 (0-2) % Neut # (Auto) 2000 (9188-5980) /uL Lymph # (Auto) 1200 (0956-1615) /uL [place] # (Auto) 300 (0-900) /uL Eos # (Auto) 100 (0-450) /uL Baso # (Auto) 0 (0-100) /uL Sodium 140 (137-145) mmol/L Potassium 3.9 (3.4-5.1) mmol/L Chloride 107 (98-107) mmol/L Carbon Dioxide 27 (22-32) mmol/L BUN 11 (7-17) mg/dL Creatinine 0.59 (0.52-1.04) mg/dL Estimated GFR > 60 (>60) mL/min BUN/Creatinine Ratio 18.6 (6-22) Glucose 89 (80-110) mg/dL Calcium 8.5 (8.4-10.2) mg/dL Magnesium 2.1 (1.6-2.3) mg/dL Total Bilirubin 0.8 (0.2-1.3) mg/dL AST 35 (14-36) IU/L ALT 28 (<35) IU/L Alkaline Phosphatase 66 (38-126) U/L Total Creatine Kinase 71 (30-135) U/L CK-MB (CK-2) TNP CK-MB (CK-2) Rel Index TNP Troponin I < 0.012 (0.01-0.034) ng/mL Total Protein 6.6 (6.3-8.2) g/dL Albumin 3.7 (3.5-5.0) g/dL Globulin 2.9 (1.7-4.1) g/dL Albumin/Globulin Ratio 1.3 (1.0-2.8) Urine RBC (0-5/HPF) Urine WBC (0-5/HPF) Ur Squamous Epith Cells (0-5/HPF) Urine Bacteria (None) Ur Culture Indicated? 03/31/22 Range/Units 15:35 WBC (4.5-11.0) X10^3/uL RBC (4.0-5.2) X10^6/uL Hgb (12.0-16.0) g/dL Hct (36-46) % MCV (80-100) fL MCH (26-34) PG MCHC (30-36) % RDW (11.6-14.8) % Plt Count (150-400) X10^3/uL Neut % (Auto) (50-75) % Lymph % (Auto) (25-40) % [place] % (Auto) (3-14) % Eos % (Auto) (2-4) % Baso % (Auto) (0-2) % Neut # (Auto) (3576-8836) /uL Lymph # (Auto) (3222-1239) /uL [place] # (Auto) (0-900) /uL Eos # (Auto) (0-450) /uL Baso # (Auto) (0-100) /uL Sodium (137-145) mmol/L Potassium (3.4-5.1) mmol/L Chloride (98-107) mmol/L Carbon Dioxide (22-32) mmol/L BUN (7-17) mg/dL Creatinine (0.52-1.04) mg/dL Estimated GFR (>60) mL/min BUN/Creatinine Ratio (6-22) Glucose (80-110) mg/dL Calcium (8.4-10.2) mg/dL Magnesium (1.6-2.3) mg/dL Total Bilirubin (0.2-1.3) mg/dL AST (14-36) IU/L ALT (<35) IU/L Alkaline Phosphatase (38-126) U/L Total Creatine Kinase (30-135) U/L CK-MB (CK-2) CK-MB (CK-2) Rel Index Troponin I (0.01-0.034) ng/mL Total Protein (6.3-8.2) g/dL Albumin (3.5-5.0) g/dL Globulin (1.7-4.1) g/dL Albumin/Globulin Ratio (1.0-2.8) Urine RBC None seen (0-5/HPF) Urine WBC None seen (0-5/HPF) Ur Squamous Epith Cells None seen (0-5/HPF) Urine Bacteria None seen (None) Ur Culture Indicated? Culture not indicate Urine Dip Bedside Urine Glucose Negative Bedside Urine Bilirubin - Negative Bedside Urine Ketone - Negative Urine Specific [place] 1.010 Bedside Urine Occult Blood - Negative Bedside Urine pH 7.0 Bedside Urine Protein - Negative Bedside Urine Urobilinogen - Negative Bedside Urine Nitrite - Negative Bedside Urine Leukocytes - Negative Esterase Imaging Data CT scan - head: Radiologist's Impression: Radiology report did not carry over, no acute intracranial abnormality, cerebral volume loss and small vessel ischemic changes. Chest x-ray: Radiologist's Impression: Radiology report did not carry over, no acute abnormality of the chest CT - cervical spine: Radiologist's Impression: CT cervical spine report did not carry over, report impression states no acute traumatic abnormality of the cervical spine. Extremity x-ray #1: Radiologist's Impression: PROCEDURE:? XR SHOULDER RT MIN 2V ? INDICATIONS:? shoulder pain after fall/baseline rotator cuff injury ? TECHNIQUE:? 3 views of the shoulder were acquired.? ? COMPARISON:? None. ? FINDINGS:? ? Bones:? No fractures or dislocations.? No suspicious bony lesions.? Visualized ribs appear intact.? The right acromioclavicular joint has degenerative changes. ? Soft tissues:? No suspicious soft tissue calcifications.? ? IMPRESSION:? 1. No acute traumatic abnormality. 2. Degenerative changes of the right acromioclavicular joint.? ? ? Dictated by: Ry Moya M.D. on 03/31/2022 at 13:55 ? ? Approved by: Ry Moya M.D. on 03/31/2022 at 13:57 ? ECG Data Interpretation: EKG independently reviewed by myself at 1243 reveals normal sinus rhythm at [] bpm with regular axis and intervals. No STEMI, ST segment changes, arrhythmia, or acute ischemic changes. MDM Narrative Medical decision making narrative: This is an 81-year-old female who presents to the emergency department via air lift from [place] after a mechanical fall last night where she hit the right side of her forehead and temporal lobe sustaining a contusion to the right side of her forehead and temporal lobe. She complained of a headache, had nausea this morning and presumed concussion. Head CT, cervical spine CT were without any acute abnormalities, chest x-ray did not show any acute abnormalities either, right shoulder x-ray shows no acute traumatic abnormality with degenerative changes of the right acromioclavicular joint. Patient did not have any vomiting, her headache was treated with 500 of LR, Tylenol, and Benadryl and states that she feels much better. Her came to pick her up and she was discharged without any neuro deficits, difficulty walking or other findings. Her lab work is unremarkable, urine does not show any signs of infection, EKGs without any ST changes or concerning arrhythmia. Patient tripped on her left leg which at baseline is weaker than the right, states this happens easily and uses a walker at baseline. Patient understands to follow-up with her primary care provider as needed. Patient is appropriate and amenable to discharge home. Vital signs are stable on repeat examination is unremarkable. Patient has been informed of results. Patient has been given strict return to ER precautions for any new or worsening symptoms. Patient understands to follow up closely with outpatient providers as instructed. Patient understands plan and agrees to discharge home. All questions and concerns answered at this time. <Faby Slaughter, - Last Filed: 04/01/22 01:30> Lab Data Labs: Lab Results 03/31/22 03/31/22 03/31/22 Range/Units 12:21 12:21 12:21 WBC 3.6 L (4.5-11.0) X10^3/uL RBC 4.24 (4.0-5.2) X10^6/uL Hgb 12.7 (12.0-16.0) g/dL Hct 38.4 (36-46) % MCV 90.5 (80-100) fL MCH 29.9 (26-34) PG MCHC 33.1 (30-36) % RDW 14.7 (11.6-14.8) % Plt Count 207 (150-400) X10^3/uL Neut % (Auto) 55.2 (50-75) % Lymph % (Auto) 32.5 (25-40) % [place] % (Auto) 7.1 (3-14) % Eos % (Auto) 4.0 (2-4) % Baso % (Auto) 1.2 (0-2) % Neut # (Auto) 2000 (9504-1811) /uL Lymph # (Auto) 1200 (8297-7861) /uL [place] # (Auto) 300 (0-900) /uL Eos # (Auto) 100 (0-450) /uL Baso # (Auto) 0 (0-100) /uL Sodium 140 (137-145) mmol/L Potassium 3.9 (3.4-5.1) mmol/L Chloride 107 (98-107) mmol/L Carbon Dioxide 27 (22-32) mmol/L BUN 11 (7-17) mg/dL Creatinine 0.59 (0.52-1.04) mg/dL Estimated GFR > 60 (>60) mL/min BUN/Creatinine Ratio 18.6 (6-22) Glucose 89 (80-110) mg/dL Calcium 8.5 (8.4-10.2) mg/dL Magnesium 2.1 (1.6-2.3) mg/dL Total Bilirubin 0.8 (0.2-1.3) mg/dL AST 35 (14-36) IU/L ALT 28 (<35) IU/L Alkaline Phosphatase 66 (38-126) U/L Total Creatine Kinase 71 (30-135) U/L CK-MB (CK-2) TNP CK-MB (CK-2) Rel Index TNP Troponin I < 0.012 (0.01-0.034) ng/mL Total Protein 6.6 (6.3-8.2) g/dL Albumin 3.7 (3.5-5.0) g/dL Globulin 2.9 (1.7-4.1) g/dL Albumin/Globulin Ratio 1.3 (1.0-2.8) Urine RBC (0-5/HPF) Urine WBC (0-5/HPF) Ur Squamous Epith Cells (0-5/HPF) Urine Bacteria (None) Ur Culture Indicated? 03/31/22 Range/Units 15:35 WBC (4.5-11.0) X10^3/uL RBC (4.0-5.2) X10^6/uL Hgb (12.0-16.0) g/dL Hct (36-46) % MCV (80-100) fL MCH (26-34) PG MCHC (30-36) % RDW (11.6-14.8) % Plt Count (150-400) X10^3/uL Neut % (Auto) (50-75) % Lymph % (Auto) (25-40) % [place] % (Auto) (3-14) % Eos % (Auto) (2-4) % Baso % (Auto) (0-2) % Neut # (Auto) (0285-3633) /uL Lymph # (Auto) (3375-5058) /uL [place] # (Auto) (0-900) /uL Eos # (Auto) (0-450) /uL Baso # (Auto) (0-100) /uL Sodium (137-145) mmol/L Potassium (3.4-5.1) mmol/L Chloride (98-107) mmol/L Carbon Dioxide (22-32) mmol/L BUN (7-17) mg/dL Creatinine (0.52-1.04) mg/dL Estimated GFR (>60) mL/min BUN/Creatinine Ratio (6-22) Glucose (80-110) mg/dL Calcium (8.4-10.2) mg/dL Magnesium (1.6-2.3) mg/dL Total Bilirubin (0.2-1.3) mg/dL AST (14-36) IU/L ALT (<35) IU/L Alkaline Phosphatase (38-126) U/L Total Creatine Kinase (30-135) U/L CK-MB (CK-2) CK-MB (CK-2) Rel Index Troponin I (0.01-0.034) ng/mL Total Protein (6.3-8.2) g/dL Albumin (3.5-5.0) g/dL Globulin (1.7-4.1) g/dL Albumin/Globulin Ratio (1.0-2.8) Urine RBC None seen (0-5/HPF) Urine WBC None seen (0-5/HPF) Ur Squamous Epith Cells None seen (0-5/HPF) Urine Bacteria None seen (None) Ur Culture Indicated? Culture not indicate Urine Dip Bedside Urine Glucose Negative Bedside Urine Bilirubin - Negative Bedside Urine Ketone - Negative Urine Specific [place] 1.010 Bedside Urine Occult Blood - Negative Bedside Urine pH 7.0 Bedside Urine Protein - Negative Bedside Urine Urobilinogen - Negative Bedside Urine Nitrite - Negative Bedside Urine Leukocytes - Negative Esterase <Krishna Posada MD - Last Filed: 04/01/22 07:06> Lab Data Labs: Lab Results 03/31/22 03/31/22 03/31/22 Range/Units 12:21 12:21 12:21 WBC 3.6 L (4.5-11.0) X10^3/uL RBC 4.24 (4.0-5.2) X10^6/uL Hgb 12.7 (12.0-16.0) g/dL Hct 38.4 (36-46) % MCV 90.5 (80-100) fL MCH 29.9 (26-34) PG MCHC 33.1 (30-36) % RDW 14.7 (11.6-14.8) % Plt Count 207 (150-400) X10^3/uL Neut % (Auto) 55.2 (50-75) % Lymph % (Auto) 32.5 (25-40) % [place] % (Auto) 7.1 (3-14) % Eos % (Auto) 4.0 (2-4) % Baso % (Auto) 1.2 (0-2) % Neut # (Auto) 2000 (6665-8975) /uL Lymph # (Auto) 1200 (7151-8562) /uL [place] # (Auto) 300 (0-900) /uL Eos # (Auto) 100 (0-450) /uL Baso # (Auto) 0 (0-100) /uL Sodium 140 (137-145) mmol/L Potassium 3.9 (3.4-5.1) mmol/L Chloride 107 (98-107) mmol/L Carbon Dioxide 27 (22-32) mmol/L BUN 11 (7-17) mg/dL Creatinine 0.59 (0.52-1.04) mg/dL Estimated GFR > 60 (>60) mL/min BUN/Creatinine Ratio 18.6 (6-22) Glucose 89 (80-110) mg/dL Calcium 8.5 (8.4-10.2) mg/dL Magnesium 2.1 (1.6-2.3) mg/dL Total Bilirubin 0.8 (0.2-1.3) mg/dL AST 35 (14-36) IU/L ALT 28 (<35) IU/L Alkaline Phosphatase 66 (38-126) U/L Total Creatine Kinase 71 (30-135) U/L CK-MB (CK-2) TNP CK-MB (CK-2) Rel Index TNP Troponin I < 0.012 (0.01-0.034) ng/mL Total Protein 6.6 (6.3-8.2) g/dL Albumin 3.7 (3.5-5.0) g/dL Globulin 2.9 (1.7-4.1) g/dL Albumin/Globulin Ratio 1.3 (1.0-2.8) Urine RBC (0-5/HPF) Urine WBC (0-5/HPF) Ur Squamous Epith Cells (0-5/HPF) Urine Bacteria (None) Ur Culture Indicated? 09/22/22 Range/Units 15:35 WBC (4.5-11.0) X10^3/uL RBC (4.0-5.2) X10^6/uL Hgb (12.0-16.0) g/dL Hct (36-46) % MCV (80-100) fL MCH (26-34) PG MCHC (30-36) % RDW (11.6-14.8) % Plt Count (150-400) X10^3/uL Neut % (Auto) (50-75) % Lymph % (Auto) (25-40) % [place] % (Auto) (3-14) % Eos % (Auto) (2-4) % Baso % (Auto) (0-2) % Neut # (Auto) (1236-5253) /uL Lymph # (Auto) (9685-0430) /uL [place] # (Auto) (0-900) /uL Eos # (Auto) (0-450) /uL Baso # (Auto) (0-100) /uL Sodium (137-145) mmol/L Potassium (3.4-5.1) mmol/L Chloride (98-107) mmol/L Carbon Dioxide (22-32) mmol/L BUN (7-17) mg/dL Creatinine (0.52-1.04) mg/dL Estimated GFR (>60) mL/min BUN/Creatinine Ratio (6-22) Glucose (80-110) mg/dL Calcium (8.4-10.2) mg/dL Magnesium (1.6-2.3) mg/dL Total Bilirubin (0.2-1.3) mg/dL AST (14-36) IU/L ALT (<35) IU/L Alkaline Phosphatase (38-126) U/L Total Creatine Kinase (30-135) U/L CK-MB (CK-2) CK-MB (CK-2) Rel Index Troponin I (0.01-0.034) ng/mL Total Protein (6.3-8.2) g/dL Albumin (3.5-5.0) g/dL Globulin (1.7-4.1) g/dL Albumin/Globulin Ratio (1.0-2.8) Urine RBC None seen (0-5/HPF) Urine WBC None seen (0-5/HPF) Ur Squamous Epith Cells None seen (0-5/HPF) Urine Bacteria None seen (None) Ur Culture Indicated? Culture not indicate Urine Dip Bedside Urine Glucose Negative Bedside Urine Bilirubin - Negative Bedside Urine Ketone - Negative Urine Specific [place] 1.010 Bedside Urine Occult Blood - Negative Bedside Urine pH 7.0 Bedside Urine Protein - Negative Bedside Urine Urobilinogen - Negative Bedside Urine Nitrite - Negative Bedside Urine Leukocytes - Negative Esterase Discharge Plan Departure Patient Disposition: Home Clinical Impression: Concussion without loss of consciousness Qualifiers: Encounter type: initial encounter Qualified Code(s): S06.0X0A - Concussion without loss of consciousness, initial encounter Fall Qualifiers: Encounter type: initial encounter Qualified Code(s): W19.XXXA - Unspecified fall, initial encounter Instructions: Concussion, How to Prevent Falls Activity Restrictions/Additional Instructions: *You have been diagnosed with a fall, head injury with concussion. Please continue to take Tylenol 500 mg every 5 hours as needed for your pain, please do not have any exertional activities until your headache and your nausea improve. Please continue to rest until your headache and any other associated symptoms like fatigue, difficulty concentrating, sensitivity to light or sound, or dizziness go way. You have concussion symptoms which tend to worsen with activity, dehydration, or stimulation. Please take it easy at home, *What to do: *Please continue to take your regular medications as directed. [ ] New medication prescriptions sent to your pharmacy: [ ] [ ] New medication written as a paper prescription [ ] No new medications given *Please follow up with your primary care provider in 2-3 days, call for an appointment. Let them know you were seen in the Emergency Department and that we asked that you be seen for follow-up. We will electronically transmit a record of today's note if your PCP is in our system *If you do not have a primary care provider please contact [phone] to establish care with one of the [facility] primary care providers. *Return to Emergency Department if you should have any new, worsening, or concerning symptoms, such as [fever greater than 101F, chills, worsening pain, persistent vomiting or other bothersome symptoms]. Prescriptions: No Action [FOLIC ACID] Qty: 0 [VITAMIN D] 2,000 iu PO QDAY Qty: 0 CA PANTOTHENATE/FOLIC ACID/VIT (MULTIVITAMIN) 1 tab PO QDAY Qty: 0 escitalopram oxalate [Lexapro] 10 MG tablet 10 mg PO QDAY Qty: 0 metronidazole 0.75 % gel 0.75 % Topical QDAY Qty: 135 0RF cyclobenzaprine 10 MG tablet 10 mg PO HS Qty: 90 3RF atorvastatin [Lipitor] 20 MG tablet 20 mg PO HS Qty: 90 3RF zolpidem 5 MG tablet 5 mg PO HSP PRNQty: 30 5RF almotriptan malate [Axert] 12.5 MG tablet 12.5 mg PO SEE INSTRUCTIONS Qty: 6 3RF diphenoxylate-atropine 2.5 MG/0.025 MG tablet 1 tab PO SEE INSTRUCTIONS Qty: 20 0RF cyanocobalamin (vitamin B-12) [Vitamin B-12] 500 MCG tablet 500 mcg PO QDAY Qty: 0 raloxifene [Evista] 60 MG tablet 60 mg PO QDAY Qty: 30 11RF albuterol sulfate [Ventolin HFA] 90 MCG/PUFF HFA aerosol inhaler 0 puff INH PRN PRNQty: 1 0RF gabapentin [Neurontin] 600 MG tablet 1,200 mg PO QID Qty: 240 2RF levofloxacin [Levaquin] 500 MG tablet 500 mg PO QDAY Qty: 3 0RF aspirin 81 MG tablet,delayed release (DR/EC) 81 mg PO BID Qty: 60 1RF oxycodone 5 MG tablet 5 - 10 mg PO Q3HP PRNQty: 60 0RF amoxicillin 500 MG capsule 500 mg PO BID Qty: 180 0RF meclizine 25 mg tablet 25 mg PO TID PRN (Reason: dizziness) Qty: 20 0RF Referrals: Clay Walton MD [Family Provider] - Visit Report Forms: Patient Portal/API <Faby Slaughter DO - Last Filed: 04/01/22 01:30> Cosign ED Attending Cosignkaron Attestation: Kasandra--I was not here for this patient, I had nothing to do with this patient's care. <Krishna Posada MD - Last Filed: 04/01/22 07:06> Cosign ED Attending Serge Attestation: Kasandra--I was not here for this patient, I had nothing to do with this patient's care. I was immediately available in the department for consultation. ?This documentation has been reviewed and I agree with assessment and plan. Supervised by Krishna Posada MD
--- NOTE | 2022-03-31 12:44 | DI.RAD.S_ITS ---
PROCEDURE: XR SHOULDER RT MIN 2V INDICATIONS: shoulder pain after fall/baseline rotator cuff injury TECHNIQUE: 3 views of the shoulder were acquired. COMPARISON: None. FINDINGS: Bones: No fractures or dislocations. No suspicious bony lesions. Visualized ribs appear intact. The right acromioclavicular joint has degenerative changes. Soft tissues: No suspicious soft tissue calcifications. IMPRESSION: 1. No acute traumatic abnormality. 2. Degenerative changes of the right acromioclavicular joint. Dictated by: Ry Moya M.D. on 03/31/2022 at 13:55 Approved by: Ry Moya M.D. on 03/31/2022 at 13:57
[2022-03-31 12:46] LABS: Add Manual Diff / Slide Review NO; Basophils Absolute Auto 0 /uL (0-100); Basophils Percent Auto 1.2 % (0-2); Eosinophils Absolute Auto 100 /uL (0-450); Hematocrit 38.4 % (36-46); Hemoglobin 12.7 g/dL (12.0-16.0); Lymphocytes Absolute Auto 1200 /uL (1100-4500); Lymphocytes Percent Auto 32.5 % (25-40); Mean Corpuscular HGB Conc 33.1 % (30-36); Mean Corpuscular Hemoglobin 29.9 PG (26-34); Mean Corpuscular Volume 90.5 fL (80-100); Monocytes Absolute Auto 300 /uL (0-900); Monocytes Percent Auto 7.1 % (3-14); Neutrophils Absolute Auto 2000 /uL (1500-7000); Neutrophils Percent Auto 55.2 % (50-75); Platelet Count 207 X10^3/uL (150-400); Red Blood Cell Count 4.24 X10^6/uL (4.0-5.2); Red Cell Distribution Width 14.7 % (11.6-14.8); White Blood Cell Count 3.6 X10^3/uL (4.5-11.0)
[2022-03-31] MEDS: BACITRACIN OINT 0.9 GM PCKT 1 APPLIC TOP (12:49)
[2022-03-31 13:03] LABS: Creatine Kinase 71 U/L (30-135)
[2022-03-31 13:05] LABS: Alanine Aminotransferase 28 IU/L (<35); Albumin 3.7 g/dL (3.5-5.0); Albumin Globulin Ratio 1.3 (1.0-2.8); Alkaline Phosphatase 66 U/L (38-126); Aspartate Aminotransferase 35 IU/L (14-36); BUN Creatinine Ratio 18.6 (6-22); Bilirubin Total 0.8 mg/dL (0.2-1.3); Blood Urea Nitrogen 11 mg/dL (7-17); Calcium 8.5 mg/dL (8.4-10.2); Carbon Dioxide 27 mmol/L (22-32); Chloride 107 mmol/L (98-107); Estimated Glomerular Filt Rate > 60 mL/min (>60); Globulin 2.9 g/dL (1.7-4.1); Glucose 89 mg/dL (80-110); HEMOLYSIS < 15 (0-50); Magnesium 2.1 mg/dL (1.6-2.3); Potassium 3.9 mmol/L (3.4-5.1); Sodium 140 mmol/L (137-145); Total Protein 6.6 g/dL (6.3-8.2)
[2022-03-31 13:15] LABS: Troponin I < 0.012 ng/mL (0.01-0.034)
[2022-03-31] MEDS: ONDANSETRON 4 MG ODT PREPACK 1 BOTTLE MISC (15:32)
[2022-03-31] MEDS: LACTATED RINGERS 500 ML 1000 ML IV (15:33)
[2022-03-31] MEDS: diphenhydrAMINE 50 MG/ML VIAL 12.5 MG IV (15:33)
[2022-03-31] MEDS: ACETAMINOPHEN 325 MG TABLET 650 MG PO (15:33)
[2022-03-31 16:22] LABS: Bacteria Urine None Seen; RBC Urine None Seen (0-5/HPF); Squamous Epithelial Cell Urine None Seen (0-5/HPF); WBC Urine None Seen (0-5/HPF)
== END 2022-03-31 18:15 | disposition home or self-care (01) ==
PROVIDERS: Emergency Provider Nurse Practitioner Critical Care Medicine; Family Provider Family Medicine
DX: S06.0X0A Concussion without loss of consciousness, initial encounter (principal); M25.511 Pain in right shoulder; W19.XXXA Unspecified fall, initial encounter; R03.0 Elevated blood-pressure reading, without diagnosis of hypertension
CPT/HCPCS: 36415; 70450; 71045; 72125; 73030; 80053; 81003; 81015; 82550; 83735; 84484; 85025; 87086; 93005; 93010; 96361; 96374; 99284; 99285; J1200

== ENCOUNTER 2022-05-03 14:32 | Emergency (ER) | payer MEDICARE, OTHER, SELFPAY ==
[2022-05-03] VITALS (13 sets, daily range): BP systolic 125–152; BP diastolic 60–79; PULSE 66–76; RESP 18–20; TEMP 36.9; O2SAT 92–98; BMI 26.9
--- NOTE | 2022-05-03 14:47 | ED_ITS ---
HPI - Fall General Chief Complaint: Fall Stated Complaint: GLF Lt. Hip pain Time Seen by Provider: 05/03/22 14:46 Source: patient and EMS Mode of arrival: EMS Limitations: no limitations History of Present Illness HPI Narrative: This is an 81-year-old female with mood and anxiety disorder, hypothyroidism, dyslipidemia chronic back pain with left lower extremity weakness from L3-4 nerve root injury remotely. Patient states today she was turning to grab her walker in the bathroom by the sink lost her balance and fell onto her left hip leg area she states she hit her head a little bit but not very hard on the c abinets. She denies any aspirin, Plavix or other anticoagulants patient denies any other injuries besides her left hip. She states she can move it it is painful, she was able to scoot herself to the bedroom call for assistance to get up off the floor she is able to walk with her walker but only toe-touch weight- bearing anything else is too painful. She has some chronic paresthesias in that leg and weakness she does not appreciate any new change. She does not appreciate significant increase in her back pain. Patient states that she could move both legs okay. She denies any chest pain or shortness of breath, no new neck or back pain. No nausea or vomiting. Patient denies any GI or urinary symptoms. She has had multiple back surgeries and states she had an iliac artery repair after it was accidentally nicked during her 1st back surgery, she is had Alexis rods. Former tobacco, occasional alcohol, no illicit. Patient lives on [address] with her . 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 Related Data Home Medications Medication Instructions Recorded Confirmed CA PANTOTHENATE/FOLIC ACID/VIT 1 tab PO QDAY ##0 12/29/10 (MULTIVITAMIN) [FOLIC ACID] ##0 12/29/10 [VITAMIN D] 2,000 iu PO QDAY ##0 12/29/10 escitalopram oxalate 10 mg tablet 10 mg PO QDAY ##0 04/30/12 (Lexapro) cyanocobalamin (vitamin B-12) 500 500 mcg PO QDAY ##0 07/08/16 mcg tablet (Vitamin B-12) Previous Rx's Medication Instructions Recorded metronidazole 0.75 % topical gel 0.75 % topical QDAY #135 mL 02/25/16 almotriptan malate 12.5 mg tablet 12.5 mg PO SEE INSTRUCTIONS #6 tabs 06/21/16 (Axert) atorvastatin 20 mg tablet (Lipitor) 20 mg PO HS #90 tabs 06/21/16 cyclobenzaprine 10 mg tablet 10 mg PO HS #90 tabs 06/21/16 zolpidem 5 mg tablet 5 mg PO HSP PRN #30 tabs 06/21/16 diphenoxylate-atropine 2.5 1 tab PO SEE INSTRUCTIONS #20 tabs 07/08/16 mg-0.025 mg tablet raloxifene 60 mg tablet (Evista) 60 mg PO QDAY #30 tabs 09/13/16 albuterol sulfate 90 mcg/actuation 0 puff INH PRN PRN #1 puff 11/04/16 aerosol inhaler (Ventolin HFA) gabapentin 600 mg tablet 1,200 mg PO QID #240 tabs 01/31/17 (Neurontin) aspirin 81 mg tablet,delayed 81 mg PO BID #60 tabs 02/13/17 release levofloxacin 500 mg tablet 500 mg PO QDAY #3 tabs 02/13/17 (Levaquin) oxycodone 5 mg tablet 5 - 10 mg PO Q3HP PRN #60 tabs 02/13/17 amoxicillin 500 mg capsule 500 mg PO BID #180 caps 03/02/17 meclizine 25 mg tablet 25 mg PO TID PRN dizziness #20 tabs 08/10/20 Allergies Allergy/AdvReac Type Severity Reaction Status Date / Time adhesive Allergy Severe RASH Verified 08/10/20 17:48 nickel [NICKEL] Allergy Intermediate RASH Verified 08/10/20 17:48 morphine [MORPHINE] Allergy Unknown Verified 08/10/20 17:48 haloperidol AdvReac Mild HALLUCINATI Verified 08/10/20 17:48 ONS Review of Systems Review of Systems ROS Unobtainable: All systems reviewed & are unremarkable except as noted in HPI and below Patient History Social History Smoking Status: Former smoker Smoking Status: Former smoker alcohol intake frequency: 0-2 drinks per day Substance Use Type: does not use Exam Narrative Exam Narrative: GEN: backboard prior to arrival. Patient appears in mild distress. HEAD: No evidence of trauma, no raccoon/Hollis sign. NECK: Nontender, painless range of motion, trachea midline [Negative/positive] Nexus criteria, there is no midline line tenderness, distracting injury, altered mental status, neuro deficit, recent EtOH. EYES: PERRLA, EOMI ENT: External inspection normal, trachea is midline, TM's are normal no hem otypanum, Nares are clear, no septal hematoma, no dental or oral injury, airway is normal and with normal occlusion, No bony tenderness RESP: Chest is nontender and has symmetric movement, no ecchymosis, breath sounds are normal no crackles, wheezes or rales CVS: Heart sounds are normal, no murmur noted, No JVD. ABG/GI: Nontender, soft, normal bowel sounds, no distention, no organomegaly, pelvic rock is negative NEURO: Oriented AOx3, neuro is grossly intact, sensation and motor is normal all 4 extremities moving, cranial nerves II through XII are intact, GCS is 15 PSYCH: Normal mood and affect SKIN: Intact, warm and dry, no crepitus and without decubitus BACK: No CVA tenderness, no vertebral tenderness, no step-off's, no crepitus EXT: Atraumatic, right hip nontender, patient does have tenderness over the left hip, no other bony tenderness throughout the lower extremity,, no pedal edema, normal color and temperature, normal range of motion of extremities with normal tendon exam, 2+ pulses in all four extremities Initial Vital Signs Initial Vital Signs: Vital Signs Pulse Rate 74 05/03/22 14:38 Pulse Oximetry 98 05/03/22 14:38 Scores GCS [place] coma scale eye opening: Spontaneous [place] coma scale verbal response: Orientated [place] coma scale motor response: Obey commands [place] coma scale total score: 15 Course Orders Ordered: ED Orders 05/03/22 15:01 Chest [XR chest 1V] Stat XR hip w pel if done LT 2V Stat 05/03/22 16:19 CT pelvis wo con Stat 05/03/22 16:35 CBC Auto Diff [Complete Blood Count AUTO DIFF] Stat CMP [Comprehensive Metabolic Panel] Stat Lipase Stat PTT [Partial Thromboplastin Time] Stat Prothrombin Time INR Stat Discontinued Medications Acetaminophen (Acetaminophen 325 Mg Tablet) 975 mg PO NOW ONE Stop: 05/03/22 16:20 Last Admin: 05/03/22 18:12 Dose: 975 mg Documented By: RLS Consultations Consultation #1: Shmuel Damon: Orthopedic surgery patient CT was reviewed. Sacral insufficiency fracture can weightbear as tolerated. Time: 18:08 Vital Signs Vital signs: Vital Signs - 8 hr 05/03/22 14:40 05/03/22 18:18 05/03/22 14:38 Temperature 98.4 F Pulse Rate 74 75 74 Respiratory Rate 18 20 Blood Pressure 125/60 152/78 H Pulse Oximetry 96 95 98 Oxygen Delivery Method Room Air Room Air 05/03/22 14:40 05/03/22 14:40 05/03/22 14:45 Temperature Pulse Rate 73 71 Respiratory Rate Blood Pressure 129/60 Pulse Oximetry 98 94 Oxygen Delivery Method 05/03/22 14:45 05/03/22 15:00 05/03/22 15:00 Temperature Pulse Rate 71 Respiratory Rate 20 Blood Pressure 125/60 140/60 Pulse Oximetry 97 Oxygen Delivery Method 05/03/22 15:30 05/03/22 16:00 05/03/22 16:30 Temperature Pulse Rate 66 70 68 Respiratory Rate Blood Pressure Pulse Oximetry 95 92 93 Oxygen Delivery Method 05/03/22 17:00 05/03/22 17:30 05/03/22 18:00 Temperature Pulse Rate 69 73 75 Respiratory Rate Blood Pressure Pulse Oximetry 92 92 95 Oxygen Delivery Method 05/03/22 18:19 05/03/22 18:19 05/03/22 18:37 Temperature Pulse Rate 75 76 Respiratory Rate Blood Pressure 152/78 H 137/79 Pulse Oximetry 94 94 Oxygen Delivery Method MDM - Fall Lab Data Result diagrams: 05/03/22 16:35 05/03/22 16:35 Labs: Lab Results 05/03/22 05/03/22 05/03/22 Range/Units 16:35 16:35 16:35 WBC 3.7 L (4.5-11.0) X10^3/uL RBC 4.17 (4.0-5.2) X10^6/uL Hgb 12.7 (12.0-16.0) g/dL Hct 37.9 (36-46) % MCV 90.8 (80-100) fL MCH 30.4 (26-34) PG MCHC 33.5 (30-36) % RDW 14.5 (11.6-14.8) % Plt Count 191 (150-400) X10^3/uL Neut % (Auto) 46.7 L (50-75) % Lymph % (Auto) 40.2 H (25-40) % [place] % (Auto) 8.6 (3-14) % Eos % (Auto) 3.2 (2-4) % Baso % (Auto) 1.3 (0-2) % Neut # (Auto) 1700 (1984-1515) /uL Lymph # (Auto) 1500 (8480-0227) /uL [place] # (Auto) 300 (0-900) /uL Eos # (Auto) 100 (0-450) /uL Baso # (Auto) 0 (0-100) /uL PT 12.0 (10.1-12.7) SECONDS INR 1.0 (0.9-1.3) APTT 33 (26-36) SECONDS Sodium 140 (137-145) mmol/L Potassium 4.2 (3.4-5.1) mmol/L Chloride 106 (98-107) mmol/L Carbon Dioxide 28 (22-32) mmol/L BUN 15 (7-17) mg/dL Creatinine 0.60 (0.52-1.04) mg/dL Estimated GFR > 60 (>60) mL/min BUN/Creatinine Ratio 25.0 H (6-22) Glucose 72 L (80-110) mg/dL Calcium 8.8 (8.4-10.2) mg/dL Total Bilirubin 0.8 (0.2-1.3) mg/dL AST 32 (14-36) IU/L ALT 27 (<35) IU/L Alkaline Phosphatase 65 (38-126) U/L Total Protein 6.7 (6.3-8.2) g/dL Albumin 3.7 (3.5-5.0) g/dL Globulin 3.0 (1.7-4.1) g/dL Albumin/Globulin Ratio 1.2 (1.0-2.8) Lipase 46 (23-300) U/L Imaging Data Chest x-ray: Radiologist's Impression: [address] [address] XRay Report Signed Patient: Violeta Ray MR#: [id number] : 1940 Acct:[id number] Age/Sex: 81 / F Date of Service: 05/03/22 Loc: ED Accession Number: [id number] ?? Procedure: XR chest 1V Ordering Provider: Imani Hassan D.O. PROCEDURE:? XR CHEST 1V ? INDICATIONS:? left hip pain ? TECHNIQUE:? One view of the chest was acquired.? ? COMPARISON:? [facility], CR, XR CHEST 1V, 03/31/2022, 12:25. ? FINDINGS:? ? Surgical changes and devices:? Spinal fixation hardware appears intact where visualized. ? Lungs and pleura:? Lungs are clear.? No pleural effusions or pneumothorax.? ? Mediastinum:? Mediastinal contours appear normal.? Heart size is normal.? ? Bones and chest wall:? No suspicious bony lesions.? Overlying soft tissues appear unremarkable.? ? IMPRESSION:? No acute cardiopulmonary findings. ? ? Dictated by: Trini Kohler M.D. on 05/03/2022 at 15:57 ? ? Approved by: Trini Kohler M.D. on 05/03/2022 at 15:58?? Extremity x-ray #1: Radiologist's Impression: Close Pelvis CT (Signed) David Escobar - 05/03/22 Hip X-Ray (Signed) Trini Kohler - 05/03/22 Chest X-Ray (Signed) Trini Kohler - 05/03/22 Shoulder X-Ray (Signed) Ry Moya - 03/31/[address] (Signed) Ry Moya - 03/31/22 Chest X-Ray (Signed) Ry Moya - 03/31/[address] (Signed) Ry Moya - 03/31/22 Head/Neck CTA (Signed) Naveen Hopper - 08/10/[address] (Signed) David Escobar - 08/10/20 Chest X-Ray (Signed) David Escobar - 08/10/20 EKG Rpt. 08/10/20 Launch?Image [address] [address] XRay Report Signed Patient: Violeta Ray MR#: [id number] : 1940 Acct:[id number] Age/Sex: 81 / F Date of Service: 05/03/22 Loc: ED Accession Number: [id number] ?? Procedure: XR hip w pel if done LT 2V Ordering Provider: Imani Hassan D.O. PROCEDURE:? XR HIP W PEL IF DONE LT 2V ? INDICATIONS:? left hip pain ? TECHNIQUE:? AP pelvis with lateral view(s) of the left hip(s).? ? COMPARISON:? None. ? FINDINGS:? ? Bones:? Lumbosacral fixation hardware is grossly intact where visualized.? Radiolucency surrounds the left sacral screw suggesting hardware loosening.? No acute fracture or dislocation.? There is mild left hip joint space narrowing and small collar os teophytes. ? Soft tissues:? The visualized bowel gas pattern is normal.? No suspicious soft tissue calcifications.? ? ? IMPRESSION:? ? 1. Mild to moderate left hip osteoarthritis. ? 2. Questionable loosening of the left sacral fixation screw.? If further characterization is warranted, nuclear medicine scan could be used.? ? ? Dictated by: Trini Kohler M.D. on 05/03/2022 at 15:56 ? ? Approved by: Trini Kohler M.D. on 05/03/2022 at 15:57?? Pelvic CT : Radiologist's Impression: Violeta Ray??81??F??1940 ? Allergy/Adv: adhesive, nickel, morphine, haloperidol (More??) Close Pelvis CT (Signed) David Escobar - 05/03/22 Hip X-Ray (Signed) Trini Kohler - 05/03/22 Chest X-Ray (Signed) Trini Kohler - 05/03/22 Shoulder X-Ray (Signed) Ry Moya - 03/31/[address] (Signed) Ry Moya - 03/31/22 Chest X-Ray (Signed) Ry Moya - 03/31/[address] (Signed) Ry Moya - 03/31/22 Head/Neck CTA (Signed) Naveen Hopper - 08/10/[address] (Signed) David Escobar - 08/10/20 Chest X-Ray (Signed) David Escobar - 08/10/20 EKG Rpt. 08/10/20 Launch?[place] [address] CT Scan Report Signed Patient: Violeta Ray MR#: [id number] : 1940 Acct:[id number] Age/Sex: 81 / F Date of Service: 05/03/22 Loc: ED Accession Number: [id number] ?? Procedure: CT pelvis wo con Ordering Provider: Imani Hassan D.O. PROCEDURE:? CT PEL WO CON ? INDICATIONS:? sacral screw ? loosened, right hip pain ? TECHNIQUE:? Noncontrast 3 mm axial sections acquired through the bony pelvis, with coronal and sagittal reformatting.? ? COMPARISON:? [facility], CT, PELVIS WITHOUT CONTRAST, 01/17/2008, 11:27. ? FINDINGS:? Image quality:? Diagnostic.? Significant beam hardening artifacts from surgical hardware are seen.? ? Bones:? There is prior extensive fusion of lumbar sacral spine with surgical hardware in place causing significant beam hardening artifacts.? There is no gross hardware loosening or failure.? Bilateral sacral screws are grossly intact.? There is diffuse osteopenia.? Subtle cortical irregularity and disruption involving posterior lateral right sacral cortex adjacent to right sacroiliac joint is seen concerning for subtle nondisplaced fracture/insufficiency fracture series 2, image 19. No other fracture or dislocation is seen.? Osteoarthritic changes are noted throughout bony pelvis.? No evidence of avascular necrosis of femoral head. ? Soft tissues:? There is no pelvic free fluid or free air.? No abnormal bowel wall thickening or bladder wall thickening.? No pelvic lymphadenopathy by size criteria.? There is no gross presacral soft tissue swelling or edema.? Calcifications i nvolving bilateral hamstring tendon origins at ischial tuberosities consistent with calcific tendinitis. ? ? IMPRESSION:? 1. Slightly degraded study due to artifacts from surgical hardware. 2. No gross hardware loosening or failure.? Specifically, bilateral sacral screws are intact. 3. Diffuse osteopenia.? Questionable cortical irregularity involving posterior lateral cortex of right sacrum.? Insufficiency fracture cannot be excluded given patient's symptoms. 4. No other fracture or dislocation.? Osteoarthritic changes throughout bony pelvis. 5. No pelvic soft tissue abnormalities.? ? ? Dictated by: David Escobar M.D. on 05/03/2022 at 16:57 ? ? Approved by: David Escobar M.D. on 05/03/2022 at 17:08?? [facility] Narrative Medical decision making narrative: This is an 81-year-old female who had a ground level fall on her left hip she states she did hit her head she defers additional workup or CT she denies daily aspirin currently. She would her main complaint is left hip pain. She was able to move it but could not weightbear beyond toe-touch. This happened about 12:30 today patient was airlifted over from [place]. Patient on exam has possibly some mild discomfort, maybe to move her left leg without much issue. She has weakness chronically her left leg so she has some difficulty. Reviewed her findings for CT, labs and x-ray today. Patient feels that she can probably ambulate safely will do an ambulation trial and if she 60s will discharge home with plan for follow-up with orthopedic surgery, pain management as needed although patient defers anything with narcotics. She lives on [address] so returning her home today may be difficult as it is late in the day and she does not have any family or friends present yet. Patient able to ambulate. Discharge Plan Departure Patient Disposition: Home Clinical Impression: Closed sacral fracture, Fall Activity Restrictions/Additional Instructions: Your imaging today shows possible posterior right sacral insufficiency fracture. I spoke with Orthopedic surgery you are able to weightbear as tolerated. You take Tylenol up to a 1000 mg every 6 hours. If you tolerate ibuprofen you can take 600 mg every 6 hours in addition to Tylenol. Please return for new or worsening symptoms, severe headaches, new neck or back pain, persistent vomiting, new numbness, tingling or weakness, loss of bowel or bladder control or other new or concerning symptoms. Prescriptions: No Action [FOLIC ACID] Qty: 0 [VITAMIN D] 2,000 iu PO QDAY Qty: 0 CA PANTOTHENATE/FOLIC ACID/VIT (MULTIVITAMIN) 1 tab PO QDAY Qty: 0 escitalopram oxalate [Lexapro] 10 MG tablet 10 mg PO QDAY Qty: 0 metronidazole 0.75 % gel 0.75 % Topical QDAY Qty: 135 0RF cyclobenzaprine 10 MG tablet 10 mg PO HS Qty: 90 3RF atorvastatin [Lipitor] 20 MG tablet 20 mg PO HS Qty: 90 3RF zolpidem 5 MG tablet 5 mg PO HSP PRNQty: 30 5RF almotriptan malate [Axert] 12.5 MG tablet 12.5 mg PO SEE INSTRUCTIONS Qty: 6 3RF diphenoxylate-atropine 2.5 MG/0.025 MG tablet 1 tab PO SEE INSTRUCTIONS Qty: 20 0RF cyanocobalamin (vitamin B-12) [Vitamin B-12] 500 MCG tablet 500 mcg PO QDAY Qty: 0 raloxifene [Evista] 60 MG tablet 60 mg PO QDAY Qty: 30 11RF albuterol sulfate [Ventolin HFA] 90 MCG/PUFF HFA aerosol inhaler 0 puff INH PRN PRNQty: 1 0RF gabapentin [Neurontin] 600 MG tablet 1,200 mg PO QID Qty: 240 2RF levofloxacin [Levaquin] 500 MG tablet 500 mg PO QDAY Qty: 3 0RF aspirin 81 MG tablet,delayed release (DR/EC) 81 mg PO BID Qty: 60 1RF oxycodone 5 MG tablet 5 - 10 mg PO Q3HP PRNQty: 60 0RF amoxicillin 500 MG capsule 500 mg PO BID Qty: 180 0RF meclizine 25 mg tablet 25 mg PO TID PRN (Reason: dizziness) Qty: 20 0RF Referrals: Shmuel Pena MD [Physician] - Visit Report Forms: Patient Portal/API
--- NOTE | 2022-05-03 15:01 | DI.RAD.S_ITS ---
PROCEDURE: XR CHEST 1V INDICATIONS: left hip pain TECHNIQUE: One view of the chest was acquired. COMPARISON: [facility], CR, XR CHEST 1V, 03/31/2022, 12:25. FINDINGS: Surgical changes and devices: Spinal fixation hardware appears intact where visualized. Lungs and pleura: Lungs are clear. No pleural effusions or pneumothorax. Mediastinum: Mediastinal contours appear normal. Heart size is normal. Bones and chest wall: No suspicious bony lesions. Overlying soft tissues appear unremarkable. IMPRESSION: No acute cardiopulmonary findings. Dictated by: Trini Kohler M.D. on 05/03/2022 at 15:57 Approved by: Trini Kohler M.D. on 05/03/2022 at 15:58
--- NOTE | 2022-05-03 15:01 | DI.RAD.S_ITS ---
PROCEDURE: XR HIP W PEL IF DONE LT 2V INDICATIONS: left hip pain TECHNIQUE: AP pelvis with lateral view(s) of the left hip(s). COMPARISON: None. FINDINGS: Bones: Lumbosacral fixation hardware is grossly intact where visualized. Radiolucency surrounds the left sacral screw suggesting hardware loosening. No acute fracture or dislocation. There is mild left hip joint space narrowing and small collar osteophytes. Soft tissues: The visualized bowel gas pattern is normal. No suspicious soft tissue calcifications. IMPRESSION: 1. Mild to moderate left hip osteoarthritis. 2. Questionable loosening of the left sacral fixation screw. If further characterization is warranted, nuclear medicine scan could be used. Dictated by: Trini Kohler M.D. on 05/03/2022 at 15:56 Approved by: Trini Kohler M.D. on 05/03/2022 at 15:57
--- NOTE | 2022-05-03 16:19 | DI.CT.S_ITS ---
PROCEDURE: CT PEL WO CON INDICATIONS: sacral screw ? loosened, right hip pain TECHNIQUE: Noncontrast 3 mm axial sections acquired through the bony pelvis, with coronal and sagittal reformatting. COMPARISON: [facility], CT, PELVIS WITHOUT CONTRAST, 01/17/2008, 11:27. FINDINGS: Image quality: Diagnostic. Significant beam hardening artifacts from surgical hardware are seen. Bones: There is prior extensive fusion of lumbar sacral spine with surgical hardware in place causing significant beam hardening artifacts. There is no gross hardware loosening or failure. Bilateral sacral screws are grossly intact. There is diffuse osteopenia. Subtle cortical irregularity and disruption involving posterior lateral right sacral cortex adjacent to right sacroiliac joint is seen concerning for subtle nondisplaced fracture/insufficiency fracture series 2, image 19. No other fracture or dislocation is seen. Osteoarthritic changes are noted throughout bony pelvis. No evidence of avascular necrosis of femoral head. Soft tissues: There is no pelvic free fluid or free air. No abnormal bowel wall thickening or bladder wall thickening. No pelvic lymphadenopathy by size criteria. There is no gross presacral soft tissue swelling or edema. Calcifications involving bilateral hamstring tendon origins at ischial tuberosities consistent with calcific tendinitis. IMPRESSION: 1. Slightly degraded study due to artifacts from surgical hardware. 2. No gross hardware loosening or failure. Specifically, bilateral sacral screws are intact. 3. Diffuse osteopenia. Questionable cortical irregularity involving posterior lateral cortex of right sacrum. Insufficiency fracture cannot be excluded given patient's symptoms. 4. No other fracture or dislocation. Osteoarthritic changes throughout bony pelvis. 5. No pelvic soft tissue abnormalities. Dictated by: David Escobar M.D. on 05/03/2022 at 16:57 Approved by: David Escobar M.D. on 05/03/2022 at 17:08
[2022-05-03 16:40] LABS: Add Manual Diff / Slide Review NO; Basophils Absolute Auto 0 /uL (0-100); Basophils Percent Auto 1.3 % (0-2); Eosinophils Absolute Auto 100 /uL (0-450); Eosinophils Percent Auto 3.2 % (2-4); Hematocrit 37.9 % (36-46); Hemoglobin 12.7 g/dL (12.0-16.0); Lymphocytes Absolute Auto 1500 /uL (1100-4500); Lymphocytes Percent Auto 40.2 % (25-40); Mean Corpuscular HGB Conc 33.5 % (30-36); Mean Corpuscular Hemoglobin 30.4 PG (26-34); Mean Corpuscular Volume 90.8 fL (80-100); Monocytes Absolute Auto 300 /uL (0-900); Monocytes Percent Auto 8.6 % (3-14); Neutrophils Absolute Auto 1700 /uL (1500-7000); Neutrophils Percent Auto 46.7 % (50-75); Platelet Count 191 X10^3/uL (150-400); Red Blood Cell Count 4.17 X10^6/uL (4.0-5.2); Red Cell Distribution Width 14.5 % (11.6-14.8); White Blood Cell Count 3.7 X10^3/uL (4.5-11.0)
[2022-05-03 16:54] LABS: PTT Partial Thromboplastin Tim 33 SECONDS (26-36)
[2022-05-03 16:56] LABS: Alanine Aminotransferase 27 IU/L (<35); Albumin 3.7 g/dL (3.5-5.0); Albumin Globulin Ratio 1.2 (1.0-2.8); Alkaline Phosphatase 65 U/L (38-126); Aspartate Aminotransferase 32 IU/L (14-36); Bilirubin Total 0.8 mg/dL (0.2-1.3); Blood Urea Nitrogen 15 mg/dL (7-17); Calcium 8.8 mg/dL (8.4-10.2); Carbon Dioxide 28 mmol/L (22-32); Chloride 106 mmol/L (98-107); Estimated Glomerular Filt Rate > 60 mL/min (>60); Glucose 72 mg/dL (80-110); HEMOLYSIS 25 (0-50); Lipase 46 U/L (23-300); Potassium 4.2 mmol/L (3.4-5.1); Sodium 140 mmol/L (137-145); Total Protein 6.7 g/dL (6.3-8.2)
[2022-05-03] MEDS: ACETAMINOPHEN 325 MG TABLET 975 MG PO (18:12)
== END 2022-05-03 18:55 | disposition home or self-care (01) ==
PROVIDERS: Emergency Provider Emergency Medicine; Family Provider Family Medicine
DX: S32.10XA Unspecified fracture of sacrum, initial encounter for closed fracture (principal); S09.90XA Unspecified injury of head, initial encounter; W18.30XA Fall on same level, unspecified, initial encounter
CPT/HCPCS: 36415; 71045; 72192; 73502; 80053; 83690; 85025; 85610; 85730; 99283; 99284

== ENCOUNTER → 2022-11-16 11:22 | Outpatient (CLI) | payer MEDICARE, OTHER, SELFPAY ==
--- NOTE | 2022-11-16 | DI.MRI.S_ITS ---
PROCEDURE: MR CERVICAL SPINE WO CON INDICATIONS: Radiculopathy, cervical region TECHNIQUE: Noncontrast sagittal T1 spin echo and T2 fast spin echo, sagittal STIR, foraminal oblique sagittal T2 fast spin echo, and axial gradient echo or T2 fast spin echo through the cervical spine. COMPARISON: None. FINDINGS: Image quality: Excellent. Alignment and Curvature: There is normal bony alignment. Bone Marrow: Severe degenerative changes are present throughout the cervical spine including marked osteophytosis and endplate sclerosis. Spinal Cord: Visualized spinal cord has normal size and signal. No cerebellar tonsillar herniation. Paraspinous Soft Tissues: No paravertebral masses. Prevertebral soft tissues are normal in thickness. C2-C3: Mild disc desiccation and height loss. Broad-based disc bulge. No canal stenosis. Severe bilateral foraminal stenosis. C3-C4: Moderate disc desiccation and height loss. Right paracentral broad-based disc bulge with narrowing of the right lateral recess. Mild canal stenosis. Severe right and moderate left foraminal stenosis. C4-C5: Moderate disc desiccation and height loss. Broad-based disc bulge. Mild canal stenosis. Severe bilateral foraminal stenosis. C5-C6: Severe disc desiccation and height loss. Broad-based disc bulge. There is effacement of the anterior CSF space. Moderate canal stenosis. Moderate bilateral foraminal stenosis. C6-C7: Severe disc desiccation and height loss. Broad-based disc bulge. Mild canal stenosis. Moderate bilateral foraminal stenosis. C7-T1: Moderate disc desiccation and height loss. Mild bilateral foraminal stenosis. No canal stenosis. IMPRESSION: 1. Severe multilevel degenerative disc disease with moderate canal stenosis at C5-6 and mild canal stenosis at C3-4, C4-5, and C6-7. 2. Severe bilateral foraminal stenosis at C2-3 and C4-5, severe right foraminal stenosis at C3-4, moderate left foraminal stenosis at C3-4 and moderate bilateral foraminal stenosis at C5-6 and C6-7. Dictated by: Trini Kohler M.D. on 11/16/2022 at 14:46 Approved by: Trini Kohler M.D. on 11/16/2022 at 14:58
== END ==
PROVIDERS: Family Provider Family Medicine; PCP Family Medicine; Referring Provider Physical Medicine & Rehabilitation Pain Medicine; Visit Provider Physical Medicine & Rehabilitation Pain Medicine
DX: M50.11 Cervical disc disorder with radiculopathy, high cervical region (principal); M48.02 Spinal stenosis, cervical region
CPT/HCPCS: 72141

== ENCOUNTER 2023-03-18 10:40 | Emergency (ER) | payer MEDICARE, OTHER, SELFPAY ==
--- NOTE | 2023-03-18 10:52 | DI.RAD.S_ITS ---
PROCEDURE: XR TIBIA FIBULA LT 2V INDICATIONS: fall t-1. TECHNIQUE: 2 views of the tibia and fibula were acquired. COMPARISON: None. FINDINGS: Bones: No fractures or dislocations. No suspicious bony lesions. Total knee arthroplasty Soft tissues: No suspicious soft tissue calcifications or masses. IMPRESSION: Degenerative changes without fracture Approved by: Favian Saldivar M.D. on 03/18/2023 at 11:57
--- NOTE | 2023-03-18 10:52 | DI.RAD.S_ITS ---
PROCEDURE: XR HAND RT MIN 3V INDICATIONS: fall t-1. TECHNIQUE: 3 views of the hand(s) acquired. COMPARISON: None. FINDINGS: Bones: Instrumented arthrodesis noted involving the 1st interphalangeal and 1st metacarpal phalangeal joints. First carpometacarpal arthritic changes. No evidence of acute fracture. Soft tissues: No suspicious soft tissue calcifications. IMPRESSION: No acute fracture or dislocation. Instrumented arthrodesis and arthritis Approved by: Favian Saldivar M.D. on 03/18/2023 at 11:56
[2023-03-18 10:53] VITALS: BP 113/58; PULSE 72; RESP 14; TEMP 36.7; O2SAT 99; BMI 26.3
[2023-03-18] MEDS: ACETAMINOPHEN 325 MG TABLET 650 MG PO (10:59)
[2023-03-18 11:20] LABS: Add Manual Diff / Slide Review NO; Basophils Absolute Auto 0 /uL (0-100); Basophils Percent Auto 0.8 % (0-2); Eosinophils Absolute Auto 100 /uL (0-450); Eosinophils Percent Auto 1.9 % (2-4); Hemoglobin 12.8 g/dL (12.0-16.0); Lymphocytes Absolute Auto 900 /uL (1100-4500); Lymphocytes Percent Auto 20.1 % (25-40); Mean Corpuscular HGB Conc 33.6 % (30-36); Mean Corpuscular Hemoglobin 30.1 PG (26-34); Mean Corpuscular Volume 89.8 fL (80-100); Monocytes Absolute Auto 300 /uL (0-900); Monocytes Percent Auto 7.8 % (3-14); Neutrophils Absolute Auto 3100 /uL (1500-7000); Neutrophils Percent Auto 69.4 % (50-75); Platelet Count 157 X10^3/uL (150-400); Red Blood Cell Count 4.24 X10^6/uL (4.0-5.2); Red Cell Distribution Width 14.8 % (11.6-14.8); White Blood Cell Count 4.5 X10^3/uL (4.5-11.0)
[2023-03-18 11:26] LABS: Prothrombin Time 11.4 SECONDS (10.1-12.7)
[2023-03-18 11:29] LABS: PTT Partial Thromboplastin Tim 31 SECONDS (26-36)
[2023-03-18 11:34] LABS: Alanine Aminotransferase 33 IU/L (<35); Albumin 3.6 g/dL (3.5-5.0); Albumin Globulin Ratio 1.3 (1.0-2.8); Alkaline Phosphatase 57 U/L (38-126); Aspartate Aminotransferase 32 IU/L (14-36); BUN Creatinine Ratio 44.6 (6-22); Bilirubin Total 0.9 mg/dL (0.2-1.3); Blood Urea Nitrogen 25 mg/dL (7-17); Calcium 8.5 mg/dL (8.4-10.2); Carbon Dioxide 30 mmol/L (22-32); Chloride 107 mmol/L (98-107); Estimated Glomerular Filt Rate > 60 mL/min (>60); Globulin 2.7 g/dL (1.7-4.1); Glucose 77 mg/dL (80-110); HEMOLYSIS < 15 (0-50); Lipase 63 U/L (23-300); Potassium 3.9 mmol/L (3.4-5.1); Sodium 139 mmol/L (137-145); Total Protein 6.3 g/dL (6.3-8.2)
--- NOTE | 2023-03-18 12:59 | ED.FALL ---
HPI - Fall General Chief Complaint: Fall Stated Complaint: Fell and hurt left ankle and rt hand Time Seen by Provider: 03/18/23 11:00 Source: patient and family Mode of arrival: Wheelchair Limitations: no limitations History of Present Illness HPI Narrative: This is a 82-year-old female with history of dyslipidemia, chronic back pain with Alexis rods in left lower extremity weakness and pain chronically and multiple orthopedic surgeries. Patient states she fell last night about 8:00 p.m.. Patient states her left leg has been hurting her more than typical, she denies any new numbness tingling, she is chronic weakness she states she follows pretty frequently because of this. 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 She states she was having her typical leg pain, was trying to use a rolling knee scooter and fell over sideways landing on her right hand. She has pain in her right hand with some bruising as well as some pain below the knee over the fibular area. Patient states she may have bumped her head. She denies any headache no neck pain, no chest pain or shortness of breath, no back pain. No nausea or vomiting, no dysuria, urgency frequency, no diarrhea constipation, no fecal or urinary incontinence. Patient states no daily anticoagulation. Patient states she takes gabapentin daily, duloxetine, atorvastatin, Celebrex and Tylenol for pain management. She states no hypertension, diabetes, no prior stroke or heart attack. She states no new change to weakness, numbness or difficulty movement of her extremities. She is had prior bilateral knee surgery, rotator cuff, multiple back surgeries including Alexis rods, remote ectopic surgery and 1 of her parathyroids removed. No known drug allergies. No tobacco, alcohol or illicit. Her primary care is Lottie Zavala. Related Data Home Medications Medication Instructions Recorded Confirmed escitalopram oxalate 10 mg tablet 10 mg PO QDAY ##0 04/30/12 03/18/23 (Lexapro) cyanocobalamin (vitamin B-12) 500 500 mcg PO QDAY ##0 07/08/16 03/18/23 mcg tablet (Vitamin B-12) [id number] 500 1 wafer PO DAILY 03/18/23 03/18/23 mg-50 mg-300 unit-1 mg oral wafer (Calcium-Folic Acid-Vitamin D) celecoxib 200 mg capsule 400 mg PO DAILY 03/18/23 03/18/23 cyclobenzaprine 10 mg tablet 10 mg PO ONCE PM PRN muscle spasm 03/18/23 03/18/23 duloxetine 30 mg capsule,delayed 30 mg PO DAILY 03/18/23 03/18/23 release gabapentin 800 mg tablet 1,600 mg PO 3XD 03/18/23 03/18/23 levothyroxine 50 mcg tablet 50 mcg PO DAILY 03/18/23 03/18/23 zolpidem 5 mg tablet 5 mg PO HSP PRN Insomnia 03/18/23 03/18/23 Previous Rx's Medication Instructions Recorded metronidazole 0.75 % topical gel 0.75 % topical QDAY #135 mL 02/25/16 atorvastatin 20 mg tablet (Lipitor) 20 mg PO HS #90 tabs 06/21/16 raloxifene 60 mg tablet (Evista) 60 mg PO QDAY #30 tabs 09/13/16 meclizine 25 mg tablet 25 mg PO TID PRN dizziness #20 tabs 08/10/20 Allergies Allergy/AdvReac Type Severity Reaction Status Date / Time adhesive Allergy Severe RASH Verified 03/18/23 11:45 nickel [NICKEL] Allergy Intermediate RASH Verified 03/18/23 11:45 morphine [MORPHINE] Allergy Unknown Verified 03/18/23 11:45 haloperidol AdvReac Mild HALLUCINATI Verified 03/18/23 11:45 ONS Review of Systems Review of Systems ROS Unobtainable: All systems reviewed & are unremarkable except as noted in HPI and below Patient History Social History Smoking Status: Former smoker Smoking Status: Former smoker alcohol intake frequency: 0-2 drinks per day Substance Use Type: does not use Exam Narrative Exam Narrative: GEN: well nourished, well appearing female, alert and oriented x 3, patient appears to be in mild distress. HEENT: Atraumatic, pupils are equal round reactive to light, extraocular movements are intact, nares are clear, TMs are clear with no fluid, there is no conjunctival pallor. Throat is clear without any exudates, erythema, tonsillar enlargement or uvular deviation HEART: Regular rate and rhythm without murmur, clicks, rubs. pulses are equal in upper and lower extremities LUNGS:Lungs clear to auscultation, no wheezes, rales, crackles, chest moves symmetrically ABD:bowel sounds normal, soft, non-tender, no guarding, rebound, rigidity, no masses noted, no hepatosplenomegaly :No CVA tenderness MSCL: Non-tender, no muscle atrophy, muscles strength 5/5 upper and lower extremities, full range of motion accept for some decrease motion with straight leg lift and flexion of the knee. Patient states this is her normal. She has some decreased with plantar dorsiflexion as well. Sensation throughout her left lower extremity. She has tenderness over the left proximal fibula, some slight ecchymosis. Patient also has some ecchymosis over the palm and dorsum of her right hand. Full range of motion, no other bony tenderness. NEURO:CN 2-12 intact, sensation normal, reflexes 2/4 upper and lower extremities. SKIN: No lacerations, rashes or other skin changes. Initial Vital Signs Initial Vital Signs: Vital Signs Temperature 98.1 F 03/18/23 10:53 Pulse Rate 72 03/18/23 10:53 Respiratory Rate 14 03/18/23 10:53 Blood Pressure 113/58 L 03/18/23 10:53 Pulse Oximetry 99 03/18/23 10:53 Oxygen Delivery Method Room Air 03/18/23 10:53 Course Orders Ordered: ED Orders 03/18/23 10:52 XR hand RT min 3V Stat XR tibia fibula LT 2V Stat 03/18/23 11:02 EKG-12 Lead Stat 03/18/23 11:12 CBC Auto Diff [Complete Blood Count AUTO DIFF] Stat CMP [Comprehensive Metabolic Panel] Stat Lipase Stat PTT Partial Thromboplastin Contreras Stat Prothrombin Time INR Stat Discontinued Medications Acetaminophen (Acetaminophen 325 Mg Tablet) 650 mg PO NOW ONE Stop: 03/18/23 10:53 Last Admin: 03/18/23 10:59 Dose: 650 mg Documented By: CHELA Vital Signs Vital signs: Vital Signs - 8 hr 03/18/23 10:53 03/18/23 13:00 03/18/23 13:00 Temperature 98.1 F Pulse Rate 72 63 Respiratory Rate 14 Blood Pressure 113/58 L 140/65 Pulse Oximetry 99 97 Oxygen Delivery Method Room Air 03/18/23 13:30 03/18/23 13:30 03/18/23 14:16 Temperature Pulse Rate 62 67 Respiratory Rate 14 Blood Pressure 144/67 H 139/62 Pulse Oximetry 97 99 Oxygen Delivery Method Room Air MDM - Fall Lab Data 03/18/23 11:12 03/18/23 11:12 Labs: Lab Results 03/18/23 03/18/23 03/18/23 Range/Units 11:12 11:12 11:12 WBC 4.5 (4.5-11.0) X10^3/uL RBC 4.24 (4.0-5.2) X10^6/uL Hgb 12.8 (12.0-16.0) g/dL Hct 38.0 (36-46) % MCV 89.8 (80-100) fL MCH 30.1 (26-34) PG MCHC 33.6 (30-36) % RDW 14.8 (11.6-14.8) % Plt Count 157 (150-400) X10^3/uL Neut % (Auto) 69.4 (50-75) % Lymph % (Auto) 20.1 L (25-40) % [place] % (Auto) 7.8 (3-14) % Eos % (Auto) 1.9 L (2-4) % Baso % (Auto) 0.8 (0-2) % Neut # (Auto) 3100 (6066-0437) /uL Lymph # (Auto) 900 L (9565-5966) /uL [place] # (Auto) 300 (0-900) /uL Eos # (Auto) 100 (0-450) /uL Baso # (Auto) 0 (0-100) /uL PT 11.4 (10.1-12.7) SECONDS INR 1.0 (0.9-1.3) APTT 31 (26-36) SECONDS Sodium 139 (137-145) mmol/L Potassium 3.9 (3.4-5.1) mmol/L Chloride 107 (98-107) mmol/L Carbon Dioxide 30 (22-32) mmol/L BUN 25 H (7-17) mg/dL Creatinine 0.56 (0.52-1.04) mg/dL Estimated GFR > 60 (>60) mL/min BUN/Creatinine Ratio 44.6 H (6-22) Glucose 77 L (80-110) mg/dL Calcium 8.5 (8.4-10.2) mg/dL Total Bilirubin 0.9 (0.2-1.3) mg/dL AST 32 (14-36) IU/L ALT 33 (<35) IU/L Alkaline Phosphatase 57 (38-126) U/L Total Protein 6.3 (6.3-8.2) g/dL Albumin 3.6 (3.5-5.0) g/dL Globulin 2.7 (1.7-4.1) g/dL Albumin/Globulin Ratio 1.3 (1.0-2.8) Lipase 63 (23-300) U/L Urine Dip Bedside Urine Glucose Negative Bedside Urine Bilirubin - Negative Bedside Urine Ketone - Negative Urine Specific [place] 1.010 Bedside Urine Occult Blood - Negative Bedside Urine pH 6.0 Bedside Urine Protein - Negative Bedside Urine Urobilinogen +/- 1mg Bedside Urine Nitrite - Negative Bedside Urine Leukocytes - Negative Esterase Imaging Data Extremity x-ray #1: Radiologist's Impression: [address] [address] XRay Report Signed Patient: Violeta Ray MR#: [id number] : 1940 Acct:[id number] Age/Sex: 82 / F Date of Service: 03/18/23 Loc: ED Accession Number: [id number] ?? Procedure: XR tibia fibula LT 2V Ordering Provider: Imani Hassan D.O. PROCEDURE:? XR TIBIA FIBULA LT 2V ? INDICATIONS:? fall t-1. ? TECHNIQUE:? 2 views of the tibia and fibula were acquired.? ? COMPARISON:? None. ? FINDINGS:? ? Bones:? No fractures or dislocations.? No suspicious bony lesions.? Total knee arthroplasty ? Soft tissues:? No suspicious soft tissue calcifications or masses.? ? IMPRESSION:? Degenerative changes without fracture ? ? ? Approved by: Favian Saldivar M.D. on 03/18/2023 at 11:57? Extremity x-ray #2: Radiologist's Impression: Close Tibia/Fibula X-Ray (Signed) Favian Saldivar - 03/18/23 Hand X-Ray (Signed) Favian Saldivar - 03/18/23 Cervical Spine MRI (Signed) Trini Kohler - 11/16/[address] (Signed) David Escobar 05/03/22 Hip X-Ray (Signed) Trini Kohler - 05/03/22 Chest X-Ray (Signed) Trini Kohler - 05/03/22 Shoulder X-Ray (Signed) [facility] - 03/31/[address] (Signed) [facility] - 03/31/22 Chest X-Ray (Signed) [facility]tha[facility] - 03/31/[address] (Signed) [facility]katia[facility] - 03/31/22 Head/Neck CTA (Signed) Naveen Hopper - 08/10/[address] (Signed) David Escobar - 08/10/20 Chest X-Ray (Signed) David Escobar - 08/10/20 [place] [address] XRay Report Signed Patient: Violeta Ray MR#: [id number] : 1940 Acct:[id number] Age/Sex: 82 / F Date of Service: 03/18/23 Loc: ED Accession Number: [id number] ?? Procedure: XR hand RT min 3V Ordering Provider: Imani Hassan D.O. PROCEDURE:? XR HAND RT MIN 3V ? INDICATIONS:? fall t-1. ? TECHNIQUE:? 3 views of the hand(s) acquired.? ? COMPARISON:? None. ? FINDINGS:? ? Bones:? Instrumented arthrodesis noted involving the 1st interphalangeal and 1st metacarpal phalangeal joints.? First carpometacarpal arthritic changes.? No evidence of acute fracture. ? Soft tissues:? No suspicious soft tissue calcifications.? ? ? IMPRESSION:? ? No acute fracture or dislocation. ? Instrumented arthrodesis and arthritis ? ? ? Approved by: Favian Saldivar M.D. on 03/18/2023 at 11:56? ECG Data Attestation: I personally reviewed and interpreted this ECG as follows: Prior ECG tracings: available for review Interpretation: Sinus rhythm with PVC, rate of 65, KS 164, QRS of 64 with a QTC of 422. Slight J-point elevation in 1 2 and 3 but there is variability with [id number] within each lead and not consistent with contiguous leads. Patient has prior from 03/31/2022 which appears fairly similar. MDM Narrative Medical decision making narrative: This is an 82-year-old female who had ground level fall patient states she falls fairly frequently secondary to chronic weakness in her left lower extremity secondary to spinal cord issues. She states no new acute changes. She is trying to use a knee scooter last night and fell over with her . She does have some bruising of her hand some mild tenderness but no bony tenderness negative x-ray, she is some tenderness over the proximal fibula, x-ray shows no acute change. She is no bony tenderness of the tibial plateau, patella or femur. She does not have increase in pain with passive range of motion she is some difficulty with her own active range of motion. Images were also reviewed by myself. Patient did have some basic labs obtained and these do not show any major changes glucose slightly low at 77 but patient is asymptomatic. Urine is negative. Discussed with patient she has multiple assistive devices, she is tried leg braces but finds him actually hyperextends her make her more uncomfortable. She takes Tylenol PRN she states she is a couple tablets of oxycodone if she needs it at home. She saw PT for about 6 months with minimal improvement. Patient has been active in trying to minimize her fall risk. Discharge Plan Departure Patient Disposition: Home Clinical Impression: Fall, Contusion of hand, right, Leg pain Activity Restrictions/Additional Instructions: Please follow-up with your physician as needed. Continue your home medications as provided. Please return for new rapidly worsening swelling, pain, inability to weightbear, new or changing weakness, severe headaches, neck pain, chest pain or shortness of breath, vomiting or other new or concerning changes. Prescriptions: No Action escitalopram oxalate [Lexapro] 10 MG tablet 10 mg PO QDAY Qty: 0 metronidazole 0.75 % gel 0.75 % Topical QDAY Qty: 135 0RF atorvastatin [Lipitor] 20 MG tablet 20 mg PO HS Qty: 90 3RF cyanocobalamin (vitamin B-12) [Vitamin B-12] 500 MCG tablet 500 mcg PO QDAY Qty: 0 raloxifene [Evista] 60 MG tablet 60 mg PO QDAY Qty: 30 11RF meclizine 25 mg tablet 25 mg PO TID PRN (Reason: dizziness) Qty: 20 0RF celecoxib 200 mg capsule 400 mg PO DAILY cyclobenzaprine 10 mg tablet 10 mg PO ONCE PM PRN (Reason: muscle spasm) gabapentin 800 mg tablet 1,600 mg PO 3XD levothyroxine 50 mcg tablet 50 mcg PO DAILY duloxetine 30 mg capsule,delayed release(DR/EC) 30 mg PO DAILY zolpidem 5 MG tablet 5 mg PO HSP PRN (Reason: Insomnia) Calcium-Folic Acid-Vitamin D [id number] Wafer 1 wafer PO DAILY Referrals: Lottie Zavala MD [Primary Care Provider] - Stand Alone Forms: Patient Portal/API
[2023-03-18 13:00] VITALS: BP 140/65; PULSE 63; O2SAT 97
[2023-03-18 13:30] VITALS: BP 144/67; PULSE 62; O2SAT 97
[2023-03-18 14:16] VITALS: BP 139/62; PULSE 67; RESP 14; O2SAT 99
== END 2023-03-18 14:19 | disposition home or self-care (01) ==
PROVIDERS: Emergency Provider Emergency Medicine; Family Provider Family Medicine; PCP Family Medicine
DX: S60.221A Contusion of right hand, initial encounter (principal); M79.605 Pain in left leg; W18.30XA Fall on same level, unspecified, initial encounter
CPT/HCPCS: 36415; 73130; 73590; 80053; 81003; 83690; 85025; 85610; 85730; 93005; 93010; 99284

== ENCOUNTER 2023-07-06 14:36 | Emergency (ER) | payer MEDICARE, OTHER, SELFPAY ==
[2023-07-06 14:40] VITALS: BP 135/60; PULSE 68; RESP 18; TEMP 37.1; O2SAT 98; BMI 26.6
[2023-07-06 14:53] VITALS: PULSE 70; O2SAT 96
[2023-07-06 14:54] VITALS: BP 123/72; PULSE 70; O2SAT 96
--- NOTE | 2023-07-06 14:59 | DI.CT.S_ITS ---
PROCEDURE: CT CERVICAL SPINE WO CON INDICATIONS: neck pain post fall TECHNIQUE: Noncontrast 3 mm thick sections acquired from the skull base to the T4 level. Sagittal and coronal reformats were then constructed. For radiation dose reduction, the following was used: automated exposure control, adjustment of mA and/or kV according to patient size. COMPARISON: [facility], CT, CT CERVICAL SPINE WO CON, 03/31/2022, 12:57. FINDINGS: Image quality: Excellent. Bones: No fractures or dislocations. Visualized superior ribs are intact. Soft tissues: Prevertebral soft tissues are normal in thickness. No paravertebral hematomas. No apical pneumothoraces. IMPRESSION: No fracture. No acute osseous lesion. If symptoms and/or clinical suspicion for pathology persists, evaluation with MRI should be considered for further assessment. Dictated by: Stefany Figueroa MD, PhD on 07/06/2023 at 15:45 Approved by: Stefany Figueroa MD, PhD on 07/06/2023 at 15:49
--- NOTE | 2023-07-06 14:59 | DI.CT.S_ITS ---
PROCEDURE: CT HEAD/BRAIN WO CON INDICATIONS: head injury TECHNIQUE: Noncontrast 4.5 mm thick angled axial sections acquired from the foramen magnum to the vertex, with coronal and sagittal reformats. For radiation dose reduction, the following was used: automated exposure control, adjustment of mA and/or kV according to patient size. COMPARISON: [facility], CT, CT HEAD/BRAIN WO CON, 03/31/2022, 12:57. [facility], MR, MR BRAIN WITHOUT CONTRAST, 09/29/2022, 13:09. FINDINGS: Image quality: Diagnostic. CSF spaces: Basal cisterns are patent. No extra-axial fluid collections. The ventricles are symmetric in size and shape. Brain: No intracranial bleeds or masses. There is cerebral volume loss for age, with resultant ventricular and sulcal prominence. There are periventricular and deep white matter chronic small vessel ischemic changes. There is intracranial internal carotid artery and vertebral artery atherosclerosis. Skull and face: Calvarium and visualized facial bones appear intact, without suspicious lesions. Sinuses: Visualized sinuses and mastoids are clear. IMPRESSION: No acute intracranial disease process. Dictated by: Stefany Figueroa MD, PhD on 07/06/2023 at 15:43 Approved by: Stefany Figueroa MD, PhD on 07/06/2023 at 15:45
[2023-07-06 15:00] VITALS: BP 126/70; PULSE 70; O2SAT 95
[2023-07-06 15:36] VITALS: PULSE 66; O2SAT 94
[2023-07-06 16:00] VITALS: PULSE 68; O2SAT 97
[2023-07-06] MEDS: predniSONE 20 MG TABLET 40 MG PO (16:07)
--- NOTE | 2023-07-06 16:24 | PC.NURSE ---
Addendum entered by Shantell Roe R.N. 07/06/23 16:24: Provider cleared cervical call and removed from patient himself, prior to discharge. Original Note: Pt placed in cervical collar upon arrival to room.
--- NOTE | 2023-07-06 18:06 | ED.FALL ---
HPI - Fall General Chief Complaint: Fall Stated Complaint: fall arm px and numbnesses Time Seen by Provider: 07/06/23 14:53 History of Present Illness HPI Narrative: 82-year-old female with a history of cervical disc disease here with head neck and left arm pain after a fall 4 days ago. She saw against the shower door. Did strike her head there was no loss of consciousness she has had headaches she has had some nausea but has not been vomiting. No changes in mental status and not anticoagulated. She has some right-sided neck pain and is reporting diffuse glove pattern pain in her left arm. She says at times she is dropped things with the left hand. He has not have any chest or abdominal pain. She has not been having fevers. She has been seen previously for cervical radiculopathy. Related Data Home Medications Medication Instructions Recorded Confirmed escitalopram oxalate 10 mg tablet 10 mg PO QDAY ##0 04/30/12 03/18/23 (Lexapro) cyanocobalamin (vitamin B-12) 500 500 mcg PO QDAY ##0 07/08/16 03/18/23 mcg tablet (Vitamin B-12) [id number] 500 1 wafer PO DAILY 03/18/23 03/18/23 mg-50 mg-300 unit-1 mg oral wafer (Calcium-Folic Acid-Vitamin D) celecoxib 200 mg capsule 400 mg PO DAILY 03/18/23 03/18/23 cyclobenzaprine 10 mg tablet 10 mg PO ONCE PM PRN muscle spasm 03/18/23 03/18/23 duloxetine 30 mg capsule,delayed 30 mg PO DAILY 03/18/23 03/18/23 release gabapentin 800 mg tablet 1,600 mg PO 3XD 03/18/23 03/18/23 levothyroxine 50 mcg tablet 50 mcg PO DAILY 03/18/23 03/18/23 zolpidem 5 mg tablet 5 mg PO HSP PRN Insomnia 03/18/23 03/18/23 Previous Rx's Medication Instructions Recorded metronidazole 0.75 % topical gel 0.75 % topical QDAY #135 mL 02/25/16 atorvastatin 20 mg tablet (Lipitor) 20 mg PO HS #90 tabs 06/21/16 raloxifene 60 mg tablet (Evista) 60 mg PO QDAY #30 tabs 09/13/16 meclizine 25 mg tablet 25 mg PO TID PRN dizziness #20 tabs 08/10/20 methylprednisolone 4 mg tablets in See Rx Instructions PO .COMPLEX 07/06/23 a dose pack (Medrol (Edward)) #21 ea Allergies Allergy/AdvReac Type Severity Reaction Status Date / Time adhesive Allergy Severe RASH Verified 03/18/23 11:45 nickel [NICKEL] Allergy Intermediate RASH Verified 03/18/23 11:45 morphine [MORPHINE] Allergy Unknown Verified 03/18/23 11:45 haloperidol AdvReac Mild HALLUCINATI Verified 03/18/23 11:45 ONS Patient History Social History Smoking Status: Former smoker Smoking Status: Former smoker alcohol intake frequency: 0-2 drinks per day Substance Use Type: does not use Exam Initial Vital Signs Initial Vital Signs: Vital Signs Temperature 98.7 F 07/06/23 14:40 Pulse Rate 68 07/06/23 14:40 Respiratory Rate 18 07/06/23 14:40 Blood Pressure 135/60 07/06/23 14:40 Pulse Oximetry 98 07/06/23 14:40 Oxygen Delivery Method Room Air 07/06/23 14:40 Const Other: Alert and appears to be in no distress HENMT Head: normal to inspection, normocephalic and atraumatic Eyes Other: Pupils are equal and reactive extraocular movements are intact Neck Other: Mild midline tenderness at about C4, also some paraspinal spasm and tenderness on the right side. Resp Effort & Inspection: normal respiratory effort and able to speak in complete sentences Auscultation: clear to auscultation bilaterally Cardio Other: Regular rhythm and rate Back/Spine/Pelvis Other: Thoracic and lumbar spine are nontender Skin Other: Warm and dry Neuro Other: Alert and oriented motor exam is intact x4 she has detected to light touch sensation intact deep tendon reflexes in left upper extremity Course Orders Ordered: ED Orders 07/06/23 14:59 CT cervical spine wo con Stat CT head/brain wo con Stat Discontinued Medications Prednisone (Prednisone 20 Mg Tablet) 40 mg PO NOW ONE Stop: 07/06/23 16:03 Last Admin: 07/06/23 16:07 Dose: 40 mg Documented By: PEARL Vital Signs Vital signs: Vital Signs - 8 hr 07/06/23 14:40 07/06/23 14:53 07/06/23 14:54 Temperature 98.7 F Pulse Rate 68 70 70 Respiratory Rate 18 Blood Pressure 135/60 Pulse Oximetry 98 96 96 Oxygen Delivery Method Room Air 07/06/23 14:54 07/06/23 15:00 07/06/23 15:00 Temperature Pulse Rate 70 Respiratory Rate Blood Pressure 123/72 126/70 Pulse Oximetry 95 Oxygen Delivery Method 07/06/23 15:36 07/06/23 16:00 Temperature Pulse Rate 66 68 Respiratory Rate Blood Pressure Pulse Oximetry 94 97 Oxygen Delivery Method MDM - Fall Imaging Data CT scan - head: My Impression: No acute injury on my initial review Radiologist's Impression: Radiology reports no acute intracranial injury CT - cervical spine: My Impression: No acute fracture seen on my initial review Radiologist's Impression: Radiology reports no acute fracture MDM Narrative Medical decision making narrative: 82-year-old female with a minor fall, neck pain cervical radiculopathy and head injury with normal mental status and no injury on CT. I started her on a steroid taper for her cervical radiculopathy. With regard to her head neck injury, no further treatment is needed at this point I think. Patient is to follow up with her primary care provider soon. Discharge Plan Departure Patient Disposition: Home Clinical Impression: Cervical radiculopathy Fall Qualifiers: Encounter type: initial encounter Qualified Code(s): W19.XXXA - Unspecified fall, initial encounter Head injury Qualifiers: Encounter type: initial encounter Qualified Code(s): S09.90XA - Unspecified injury of head, initial encounter Cervical muscle strain Qualifiers: Encounter type: initial encounter Qualified Code(s): S16.1XXA - Strain of muscle, fascia and tendon at neck level, initial encounter Instructions: How to Prevent Falls Activity Restrictions/Additional Instructions: Emergency department evaluation today is reassuring. No serious injury requiring hospitalization or further emergent testing is seen today. I think it is safe to go home, you can use Tylenol as needed for pain. I have also sent a prescription for a tapering steroid dose to your pharmacy which I am hoping will help with your pain soon. If you are having severe headaches vomiting increasing unsteadiness fevers new weakness in your and or inability to urinate recheck in the emergency department. 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 Prescriptions: New methylprednisolone [Medrol (Edward)] 4 mg tablets,dose pack See Rx Instructions .ROUTE .COMPLEX Qty: 21 0RF Rx Instructions: orally per package directions No Action escitalopram oxalate [Lexapro] 10 MG tablet 10 mg PO QDAY Qty: 0 metronidazole 0.75 % gel 0.75 % Topical QDAY Qty: 135 0RF atorvastatin [Lipitor] 20 MG tablet 20 mg PO HS Qty: 90 3RF cyanocobalamin (vitamin B-12) [Vitamin B-12] 500 MCG tablet 500 mcg PO QDAY Qty: 0 raloxifene [Evista] 60 MG tablet 60 mg PO QDAY Qty: 30 11RF meclizine 25 mg tablet 25 mg PO TID PRN (Reason: dizziness) Qty: 20 0RF celecoxib 200 mg capsule 400 mg PO DAILY cyclobenzaprine 10 mg tablet 10 mg PO ONCE PM PRN (Reason: muscle spasm) gabapentin 800 mg tablet 1,600 mg PO 3XD levothyroxine 50 mcg tablet 50 mcg PO DAILY duloxetine 30 mg capsule,delayed release(DR/EC) 30 mg PO DAILY zolpidem 5 MG tablet 5 mg PO HSP PRN (Reason: Insomnia) Calcium-Folic Acid-Vitamin D [id number] [id number]-mg Wafer 1 wafer PO DAILY Referrals: Lottie Zavala MD [Primary Care Provider] - Stand Alone Forms: Patient Portal/API
== END 2023-07-06 16:25 | disposition home or self-care (01) ==
PROVIDERS: Emergency Provider Emergency Medicine; Family Provider Family Medicine; PCP Family Medicine
DX: S09.90XA Unspecified injury of head, initial encounter (principal); M54.2 Cervicalgia; S16.1XXA Strain of muscle, fascia and tendon at neck level, initial encounter; M54.12 Radiculopathy, cervical region; Z79.899 Other long term (current) drug therapy; W18.2XXA Fall in (into) shower or empty bathtub, initial encounter
CPT/HCPCS: 70450; 72125; 99284

== ENCOUNTER 2023-12-20 20:22 | Emergency (ER) | payer MEDICARE, OTHER, SELFPAY ==
[2023-12-20 20:24] VITALS: BP 129/58; PULSE 78; RESP 16; TEMP 36.9; O2SAT 97; BMI 25.9
--- NOTE | 2023-12-20 21:12 | ED_ITS ---
HPI - Headache General Chief Complaint: Headache Stated Complaint: headache Time Seen by Provider: 12/20/23 21:03 Source: patient Mode of arrival: Wheelchair History of Present Illness HPI Narrative: Patient is an 83-year-old female. For the past several days she has had URI like symptoms when she states that those symptoms have actually improved if not resolved. She was here because she is having tenderness to her right temporal region. It is worse to touch. Worse with bright lights. She denies any visual changes. No blurry vision or double vision. No sinus congestion. No ear pain. No redness around her right eye. No redness of the skin over the area. No trauma. Has not tried anything for the symptoms prior to. Related Data Home Medications Medication Instructions Recorded Confirmed escitalopram oxalate 10 mg tablet 10 mg PO QDAY ##0 04/30/12 03/18/23 (Lexapro) cyanocobalamin (vitamin B-12) 500 500 mcg PO QDAY ##0 07/08/16 03/18/23 mcg tablet (Vitamin B-12) [id number] 500 1 wafer PO DAILY 03/18/23 03/18/23 mg-50 mg-300 unit-1 mg oral wafer (Calcium-Folic Acid-Vitamin D) celecoxib 200 mg capsule 400 mg PO DAILY 03/18/23 03/18/23 cyclobenzaprine 10 mg tablet 10 mg PO ONCE PM PRN muscle spasm 03/18/23 03/18/23 duloxetine 30 mg capsule,delayed 30 mg PO DAILY 03/18/23 03/18/23 release gabapentin 800 mg tablet 1,600 mg PO 3XD 03/18/23 03/18/23 levothyroxine 50 mcg tablet 50 mcg PO DAILY 03/18/23 03/18/23 zolpidem 5 mg tablet 5 mg PO HSP PRN Insomnia 03/18/23 03/18/23 Previous Rx's Medication Instructions Recorded metronidazole 0.75 % topical gel 0.75 % topical QDAY #135 mL 02/25/16 atorvastatin 20 mg tablet (Lipitor) 20 mg PO HS #90 tabs 06/21/16 raloxifene 60 mg tablet (Evista) 60 mg PO QDAY #30 tabs 09/13/16 meclizine 25 mg tablet 25 mg PO TID PRN dizziness #20 tabs 08/10/20 methylprednisolone 4 mg tablets in See Rx Instructions PO .COMPLEX 07/06/23 a dose pack (Medrol (Edward)) #21 ea Allergies Allergy/AdvReac Type Severity Reaction Status Date / Time adhesive Allergy Severe RASH Verified 03/18/23 11:45 nickel [NICKEL] Allergy Intermediate RASH Verified 03/18/23 11:45 morphine [MORPHINE] Allergy Unknown Verified 03/18/23 11:45 haloperidol AdvReac Mild HALLUCINATI Verified 03/18/23 11:45 ONS Review of Systems Constitutional Constitutional: Reports system reviewed and no additional complaints, except as documented Eyes Eyes: Reports system reviewed and no additional complaints, except as documented ENT Ears, Nose, Mouth, and Throat: Reports system reviewed and no additional complaints, except as documented Cardiovascular Cardiovascular: Reports system reviewed and no additional complaints, except as documented Integumentary/Breasts Skin/Breast: Reports system reviewed and no additional complaints, except as documented Neurologic Neurologic: Reports system reviewed and no additional complaints, except as documented Patient History Social History Smoking Status: Former smoker Smoking Status: Former smoker alcohol intake frequency: 0-2 drinks per day Substance Use Type: does not use Exam Initial Vital Signs Initial Vital Signs: Vital Signs Temperature 98.4 F 12/20/23 20:24 Pulse Rate 78 12/20/23 20:24 Respiratory Rate 16 12/20/23 20:24 Blood Pressure 129/58 L 12/20/23 20:24 Pulse Oximetry 97 12/20/23 20:24 Oxygen Delivery Method Room Air 12/20/23 20:24 HENNV Head: normal to inspection and normocephalic Ears: TM's normal bilaterally and EAC's normal Nose: external nose normal Face and sinus: face symmetric, no erythema and tenderness on the right (Temporal region) Throat: posterior oropharynx normal Eyes Pupils: PERRL EOM: EOM intact bilaterally Skin General: no rashes or lesions noted Neuro General: patient alert and patient awake Course Orders Ordered: ED Orders 12/20/23 21:35 Basic Metabolic Panel Stat C-Reactive Protein Quant Stat Complete Blood Count AUTO DIFF Stat Erythrocyte Sedimentation Rate Stat Discontinued Medications Acetaminophen (Acetaminophen 325 Mg Tablet) 650 mg PO NOW ONE Stop: 12/20/23 21:13 Last Admin: 12/20/23 21:20 Dose: 650 mg Documented By: AB Vital Signs Vital signs: Vital Signs - 8 hr 12/20/23 22:09 12/20/23 22:10 12/20/23 22:10 Pulse Rate 64 62 Blood Pressure 127/58 L Pulse Oximetry 97 97 12/20/23 22:30 12/20/23 23:00 12/20/23 23:00 Pulse Rate 68 68 Blood Pressure 121/58 L Pulse Oximetry 94 96 MDM - Headache Lab Data Attestation: I reviewed the patient's lab results. 12/20/23 21:35 12/20/23 21:35 Labs: Lab Results 12/20/23 Range/Units 21:35 WBC 3.4 L (4.5-11.0) X10^3/uL RBC 4.61 (4.0-5.2) X10^6/uL Hgb 13.8 (12.0-16.0) g/dL Hct 40.9 (36-46) % MCV 88.6 (80-100) fL MCH 29.8 (26-34) PG MCHC 33.7 (30-36) % RDW 15.1 H (11.6-14.8) % Plt Count 204 (150-400) X10^3/uL Neut % (Auto) 43.0 L (50-75) % Lymph % (Auto) 42.1 H (25-40) % [place] % (Auto) 9.5 (3-14) % Eos % (Auto) 4.1 H (2-4) % Baso % (Auto) 1.3 (0-2) % Neut # (Auto) 1500 (5370-1815) /uL Lymph # (Auto) 1400 (2680-0478) /uL [place] # (Auto) 300 (0-900) /uL Eos # (Auto) 100 (0-450) /uL Baso # (Auto) 0 (0-100) /uL ESR 16 (0-20) MM/HR Sodium 139 (137-145) mmol/L Potassium 4.3 (3.4-5.1) mmol/L Chloride 107 (98-107) mmol/L Carbon Dioxide 30 (22-32) mmol/L BUN 20 H (7-17) mg/dL Creatinine 0.52 (0.52-1.04) mg/dL Estimated GFR > 60 (>60) mL/min BUN/Creatinine Ratio 38.5 H (6-22) Glucose 92 (80-110) mg/dL Calcium 8.8 (8.4-10.2) mg/dL C-Reactive Protein 2.2 H (<1.0) mg/dL [facility] Narrative Medical decision making narrative: She does have tenderness to palpation over the right temporal region. No skin changes over the area. No vision changes. There are no signs this is zoster. Her ESR is normal with a slight elevation in her CRP. I feel that temporal arteritis is unlikely based on this. She reports a vast improvement of her symptoms after Tylenol. Suspicion for intracranial hemorrhage. We will on advanced imaging for now. She can continue to take Tylenol as needed. Have her follow up with her primary doctor. She was given return precautions. She expressed understanding and agreement. Discharge Plan Departure Patient Disposition: Home Clinical Impression: Headache Instructions: DI for Headache Activity Restrictions/Additional Instructions: You can take Tylenol in addition to the Celebrex for the headache. If you start to develop new symptoms such as fevers, vision changes, irritation to your right eye where skin changes please return to the emergency department for further evaluation. Prescriptions: No Action escitalopram oxalate [Lexapro] 10 MG tablet 10 mg PO QDAY Qty: 0 metronidazole 0.75 % gel 0.75 % Topical QDAY Qty: 135 0RF atorvastatin [Lipitor] 20 MG tablet 20 mg PO HS Qty: 90 3RF cyanocobalamin (vitamin B-12) [Vitamin B-12] 500 MCG tablet 500 mcg PO QDAY Qty: 0 raloxifene [Evista] 60 MG tablet 60 mg PO QDAY Qty: 30 11RF meclizine 25 mg tablet 25 mg PO TID PRN (Reason: dizziness) Qty: 20 0RF celecoxib 200 mg capsule 400 mg PO DAILY cyclobenzaprine 10 mg tablet 10 mg PO ONCE PM PRN (Reason: muscle spasm) gabapentin 800 mg tablet 1,600 mg PO 3XD levothyroxine 50 mcg tablet 50 mcg PO DAILY duloxetine 30 mg capsule,delayed release(DR/EC) 30 mg PO DAILY zolpidem 5 MG tablet 5 mg PO HSP PRN (Reason: Insomnia) Calcium-Folic Acid-Vitamin D [id number] [id number]-mg Wafer 1 wafer PO DAILY methylprednisolone [Medrol (Edward)] 4 mg tablets,dose pack See Rx Instructions .ROUTE .COMPLEX Qty: 21 0RF Rx Instructions: orally per package directions Referrals: Lottie Zavala MD [Primary Care Provider] - Stand Alone Forms: Patient Portal/API
[2023-12-20] MEDS: ACETAMINOPHEN 325 MG TABLET 650 MG PO (21:20)
[2023-12-20 21:58] LABS: Add Manual Diff / Slide Review NO; Basophils Absolute Auto 0 /uL (0-100); Basophils Percent Auto 1.3 % (0-2); Eosinophils Absolute Auto 100 /uL (0-450); Eosinophils Percent Auto 4.1 % (2-4); Hematocrit 40.9 % (36-46); Hemoglobin 13.8 g/dL (12.0-16.0); Lymphocytes Absolute Auto 1400 /uL (1100-4500); Lymphocytes Percent Auto 42.1 % (25-40); Mean Corpuscular HGB Conc 33.7 % (30-36); Mean Corpuscular Hemoglobin 29.8 PG (26-34); Mean Corpuscular Volume 88.6 fL (80-100); Monocytes Absolute Auto 300 /uL (0-900); Monocytes Percent Auto 9.5 % (3-14); Neutrophils Absolute Auto 1500 /uL (1500-7000); Platelet Count 204 X10^3/uL (150-400); Red Blood Cell Count 4.61 X10^6/uL (4.0-5.2); Red Cell Distribution Width 15.1 % (11.6-14.8); White Blood Cell Count 3.4 X10^3/uL (4.5-11.0)
[2023-12-20 22:09] VITALS: PULSE 64; O2SAT 97
[2023-12-20 22:10] VITALS: BP 127/58; PULSE 62; O2SAT 97
[2023-12-20 22:10] LABS: BUN Creatinine Ratio 38.5 (6-22); Blood Urea Nitrogen 20 mg/dL (7-17); C-Reactive Protein Quant 2.2 mg/dL (<1.0); Calcium 8.8 mg/dL (8.4-10.2); Carbon Dioxide 30 mmol/L (22-32); Chloride 107 mmol/L (98-107); Estimated Glomerular Filt Rate > 60 mL/min (>60); Glucose 92 mg/dL (80-110); HEMOLYSIS < 15 (0-50); Potassium 4.3 mmol/L (3.4-5.1); Sodium 139 mmol/L (137-145)
[2023-12-20 22:14] LABS: Erythrocyte Sedimentation Rate 16 MM/HR (0-20)
[2023-12-20 22:30] VITALS: PULSE 68; O2SAT 94
[2023-12-20 23:00] VITALS: BP 121/58; PULSE 68; O2SAT 96
== END 2023-12-20 23:35 | disposition home or self-care (01) ==
PROVIDERS: Emergency Provider Emergency Medicine; Family Provider Family Medicine; PCP Family Medicine
DX: R51.9 Headache, unspecified (principal)
CPT/HCPCS: 36415; 80048; 85025; 85651; 86140; 99283

== ENCOUNTER 2024-03-16 11:56 | Emergency (ER) | payer MEDICARE, OTHER, SELFPAY ==
[2024-03-16 12:11] VITALS: BP 118/59; PULSE 74; RESP 16; TEMP 36.9; O2SAT 97; BMI 27.0
--- NOTE | 2024-03-16 12:16 | DI.RAD.S_ITS ---
PROCEDURE: XR KNEE RT 3V INDICATIONS: twisted, pain with use TECHNIQUE: 3 views of the knee were acquired. COMPARISON: Located Within [facility], , KNEE 1-2 VIEWS RIGHT, 02/10/2017, 18:03. FINDINGS: Bones: Postsurgical changes of TKA shows intact hardware without surrounding lucency, in unchanged position. Soft tissues: No joint effusion. No suspicious soft tissue calcifications. IMPRESSION: No acute bony abnormality or significant effusion. Dictated by: Gilda Rosenbaum M.D. on 03/16/2024 at 11:56 Approved by: Gilda Rosenbaum M.D. on 03/16/2024 at 11:58
--- NOTE | 2024-03-16 13:17 | DI.CT.S_ITS ---
PROCEDURE: CT LE RT WO CON INDICATIONS: Pain/injury TECHNIQUE: Noncontrast 1-1.5 mm axial sections acquired of the knee with coronal and sagittal reformats. COMPARISON: [facility], CT, LOWER EXTREMITY WO CONTRAST, 03/12/2015, 14:20. Same day radiographs. FINDINGS: Image quality: Excellent. Bones: Postsurgical changes of total knee arthroplasty show intact hardware which is better evaluated on the comparison radiograph. There is no periprosthetic fracture within the visible bone, however portions of the distal femur are suboptimally evaluated secondary to hardware artifact. Soft tissues: Muscles demonstrate normal bulk. There is a suprapatellar joint effusion which is partially evaluated. There is no focal fluid collection, subcutaneous edema, or skin thickening. IMPRESSION: Joint effusion without acute osseous or soft tissue abnormality. Specifically, no periprosthetic fracture or evidence of cellulitis. Dictated by: Gilda Rosenbaum M.D. on 03/16/2024 at 13:45 Approved by: Gilda Rosenbaum M.D. on 03/16/2024 at 13:48
--- NOTE | 2024-03-16 13:43 | ED.LOWEXIN ---
HPI - Extremity Injury (Lower) General Chief Complaint: Extremity Injury, Lower Stated Complaint: Fell twisted right knee , hard time walking Time Seen by Provider: 03/16/24 13:17 Source: patient Mode of arrival: Wheelchair History of Present Illness HPI Narrative: Patient here with . Complains of right knee pain. History of total knee replacement many many years ago with Dr. López, orthopedics here at this facility. Patient has a walker and wheelchair at home that she is using since her injury yesterday. She was stooped over to open a cabinet and her that caught in the door and she twisted her right knee. She denies any other injuries or pain. Knee exposed. She states she is unable to bear weight due to pain. No numbness or tingling weakness to the limb. Foot exposed. Related Data Home Medications Medication Instructions Recorded Confirmed escitalopram oxalate 10 mg tablet 10 mg PO QDAY ##0 04/30/12 03/18/23 (Lexapro) cyanocobalamin (vitamin B-12) 500 500 mcg PO QDAY ##0 07/08/16 03/18/23 mcg tablet (Vitamin B-12) [id number] 500 1 wafer PO DAILY 03/18/23 03/18/23 mg-50 mg-300 unit-1 mg oral wafer (Calcium-Folic Acid-Vitamin D) celecoxib 200 mg capsule 400 mg PO DAILY 03/18/23 03/18/23 cyclobenzaprine 10 mg tablet 10 mg PO ONCE PM PRN muscle spasm 03/18/23 03/18/23 duloxetine 30 mg capsule,delayed 30 mg PO DAILY 03/18/23 03/18/23 release gabapentin 800 mg tablet 1,600 mg PO 3XD 03/18/23 03/18/23 levothyroxine 50 mcg tablet 50 mcg PO DAILY 03/18/23 03/18/23 zolpidem 5 mg tablet 5 mg PO HSP PRN Insomnia 03/18/23 03/18/23 Previous Rx's Medication Instructions Recorded metronidazole 0.75 % topical gel 0.75 % topical QDAY #135 mL 02/25/16 atorvastatin 20 mg tablet (Lipitor) 20 mg PO HS #90 tabs 06/21/16 raloxifene 60 mg tablet (Evista) 60 mg PO QDAY #30 tabs 09/13/16 meclizine 25 mg tablet 25 mg PO TID PRN dizziness #20 tabs 08/10/20 methylprednisolone 4 mg tablets in See Rx Instructions PO .COMPLEX 07/06/23 a dose pack (Medrol (Edward)) #21 ea hydrocodone 5 mg-acetaminophen 325 1 tab PO Q8HR PRN Pain, Moderate 03/16/24 mg tablet #12 tabs ondansetron 4 mg disintegrating 4 mg PO Q8H PRN nausea and 03/16/24 tablet vomiting #10 tabs Allergies Allergy/AdvReac Type Severity Reaction Status Date / Time adhesive AdvReac Severe RASH Verified 03/16/24 12:11 nickel [NICKEL] AdvReac Intermediate RASH Verified 03/16/24 12:11 haloperidol AdvReac Mild HALLUCINATI Verified 03/18/23 11:45 ONS morphine [MORPHINE] AdvReac Unknown Vomiting Verified 03/16/24 12:11 Review of Systems Review of Systems Narrative: GENERAL: negative chills, fatigue, malaise, fever, sweats. HEENT: negative sinus pain, ear pain, sore throat RESPIRATORY: negative dyspnea, cough CARDIOVASCULAR: negative chest pain, palpitations GASTROINTESTINAL: negative nausea, vomiting, abdominal pain : negative dysuria, frequency, hematuria MUSCULOSKELETAL: Positive muscle or bony pain SKIN: negative rash, skin lesions NEUROLOGIC: negative weakness, numbness Patient History Social History Smoking Status: Former smoker Smoking Status: Former smoker alcohol intake frequency: 0-2 drinks per day Substance Use Type: does not use Exam Narrative Exam Narrative: GENERAL: in no distress, not toxic not dyspneic HEAD: Normocephalic. EYES: Pupils equal round EXTREMITIES: No gross deformities. Examination right lower extremity knee to toes exposed. Foot is warm soft being strong pedal pulse brisk cap refills wiggles toes light touch intact to foot and toes. Nontender ankle. Able to flex and extend without any difficulty. Right knee exam. There is no laxity but does have pain of the right knee with medial and lateral stress of the right leg. There is no pain or laxity of the knee with anterior-posterior and rotational stress of the right leg. Patient states too painful to bear weight for gait testing. NEURO: AOx4. Clear speech SKIN: Warm and dry PSYCH: Not anxious, is cooperative Initial Vital Signs Initial Vital Signs: Vital Signs Temperature 98.5 F 03/16/24 12:11 Pulse Rate 74 03/16/24 12:11 Respiratory Rate 16 03/16/24 12:11 Blood Pressure 118/59 L 03/16/24 12:11 Pulse Oximetry 97 03/16/24 12:11 Oxygen Delivery Method Room Air 03/16/24 12:11 Procedures Orthopedic Splinting/Casting Injury #1: Time of procedure: 13:57 Side: right Lower Extremity Injury Location: knee Lower Extremity Immobilizer: knee immobilizer Post splinting neuro exam: intact Post splinting vascular exam: intact Placed by: Nursing Course Orders Ordered: ED Orders 03/16/24 12:16 XR knee RT 3V Stat 03/16/24 13:17 CT LE RT wo con Stat Discontinued Medications Hydrocodone Bitart/Acetaminophen (Hydrocodone/Acet 5/325 Tablet) 1 tab PO NOW ONE Stop: 03/16/24 13:28 Last Admin: 03/16/24 13:58 Dose: 1 tab Benzonatate (Benzonatate 100 Mg Capsule) 100 mg PO NOW ONE Stop: 03/16/24 13:34 Ondansetron HCl (Ondansetron 4 Mg Odt) 4 mg SL NOW ONE Stop: 03/16/24 13:28 Last Admin: 03/16/24 13:59 Dose: 4 mg Vital Signs Vital signs: Vital Signs - 8 hr 03/16/24 12:11 Temperature 98.5 F Pulse Rate 74 Respiratory Rate 16 Blood Pressure 118/59 L Pulse Oximetry 97 Oxygen Delivery Method Room Air MDM - Extremity Injury (Lower) Imaging Data Extremity x-ray #1: Radiologist's Impression: [address] [address] XRay Report Signed Patient: Violeta Ray MR#: [id number] : 1940 Acct:[id number] Age/Sex: 83 / F Date of Service: 03/16/24 Loc: ED Accession Number: [id number] Procedure: XR knee RT 3V Ordering Provider: Krishna Posada MD PROCEDURE: XR KNEE RT 3V INDICATIONS: twisted, pain with use TECHNIQUE: 3 views of the knee were acquired. COMPARISON: [facility], , KNEE 1-2 VIEWS RIGHT, 02/10/2017, 18:03. FINDINGS: Bones: Postsurgical changes of TKA shows intact hardware without surrounding lucency, in unchanged position. Soft tissues: No joint effusion. No suspicious soft tissue calcifications. IMPRESSION: No acute bony abnormality or significant effusion. Dictated by: Gilda Rosenbaum M.D. on 03/16/2024 at 11:56 Approved by: Gilda Rosenbaum M.D. on 03/16/2024 at 11:58 Extremity x-ray #2: Radiologist's Impression: [place] [address] CT Scan Report Signed Patient: Violeta Ray MR#: [id number] : 1940 Acct:[id number] Age/Sex: 83 / F Date of Service: 03/16/24 Loc: ED Accession Number: [id number] Procedure: CT LE RT wo con Ordering Provider: Krishna Posada MD PROCEDURE: CT LE RT WO CON INDICATIONS: Pain/injury TECHNIQUE: Noncontrast 1-1.5 mm axial sections acquired of the knee with coronal and sagittal reformats. COMPARISON: [facility], CT, LOWER EXTREMITY WO CONTRAST, 03/12/2015, 14:20. Same day radiographs. FINDINGS: Image quality: Excellent. Bones: Postsurgical changes of total knee arthroplasty show intact hardware which is better evaluated on the comparison radiograph. There is no periprosthetic fracture within the visible bone, however portions of the distal femur are suboptimally evaluated secondary to hardware artifact. Soft tissues: Muscles demonstrate normal bulk. There is a suprapatellar joint effusion which is partially evaluated. There is no focal fluid collection, subcutaneous edema, or skin thickening. IMPRESSION: Joint effusion without acute osseous or soft tissue abnormality. Specifically, no periprosthetic fracture or evidence of cellulitis. Dictated by: Gilda Rosenbaum M.D. on 03/16/2024 at 13:45 Approved by: Gilda Rosenbaum M.D. on 03/16/2024 at 13:48 MDM Narrative Medical decision making narrative: Patient here with . Complains of right knee pain. History of total knee replacement many many years ago with Dr. López, orthopedics here at this facility. Patient has a walker and wheelchair at home that she is using since her injury yesterday. She was stooped over to open a cabinet and her that caught in the door and she twisted her right knee. She denies any other injuries or pain. Knee exposed. She states she is unable to bear weight due to pain. No numbness or tingling weakness to the limb. Foot exposed. After history and exam x-ray of right knee, if unremarkable and CT imaging. Pain control with Garland and Zofran. Patient only has nausea with morphine, Zofran will be provided with Garland. Patient agrees with treatment plan. [facility] [place] Medical records reviewed: No recent visit for this complaint Differential considered: Includes but not limited to knee strain sprain fracture dislocation contusion Imaging studies independently reviewed: X-ray right knee no acute finding/no effusion, CT of the knee shows effusion but no acute osseous finding Consultations: Referral back to Dr. López will be provided. Treatments: Zofran Garland Re-evaluations: 2:54 p.m. Reviewed results with patient . Patient tolerated Garland very well without nausea. She will call her orthopedic provider on Monday for follow up and possible MRI of the knee. She does have a wheelchair at home that she can utilize for mobility at home. Return precautions reviewed. They do agree for short course of pain medication for the weekend until they see primary care or Orthopedics next week. Not toxic at discharge. They desire discharge home Discussion: Appropriate for discharge home exam is reassuring. Return precautions reviewed with patient. Knee immobilizer provided for patient. Short course of pain medication appropriate for the weekend. She has established orthopedic and primary care to call on Monday. Nontoxic at discharge. They desire discharge home. Patient is on celecoxib and gabapentin for pain control at home. No opiates at home. Diagnosis: Knee strain Discharge Plan Departure Patient Disposition: Home Clinical Impression: Muscle strain of right knee Qualifiers: Encounter type: initial encounter Qualified Code(s): S86.911A - Strain of unspecified muscle(s) and tendon(s) at lower leg level, right leg, initial encounter Instructions: DI for Knee Sprain Activity Restrictions/Additional Instructions: No driving operating machinery today or when taking prescribed pain medication. Please call your orthopedic provider on Monday for follow up regarding her injury from this weekend. Use your wheelchair for mobility. No driving operating machinery. Short course of pain medication has been prescribed for you. Return if worse if any questions or concerns. Do not take prescribed pain medication with your sleep medication at night. This can cause difficulty in breathing. Use provided knee immobilizer for comfort. You may take it off when sleeping. Please keep your leg elevated when at rest. Prescriptions: New hydrocodone-acetaminophen 5-325 mg tablet 1 tab PO Q8HR PRN (Reason: Pain, Moderate) Qty: 12 0RF ondansetron 4 mg tablet,disintegrating 4 mg PO Q8H PRN (Reason: nausea and vomiting) Qty: 10 0RF No Action escitalopram oxalate [Lexapro] 10 MG tablet 10 mg PO QDAY Qty: 0 metronidazole 0.75 % gel 0.75 % Topical QDAY Qty: 135 0RF atorvastatin [Lipitor] 20 MG tablet 20 mg PO HS Qty: 90 3RF cyanocobalamin (vitamin B-12) [Vitamin B-12] 500 MCG tablet 500 mcg PO QDAY Qty: 0 raloxifene [Evista] 60 MG tablet 60 mg PO QDAY Qty: 30 11RF meclizine 25 mg tablet 25 mg PO TID PRN (Reason: dizziness) Qty: 20 0RF celecoxib 200 mg capsule 400 mg PO DAILY cyclobenzaprine 10 mg tablet 10 mg PO ONCE PM PRN (Reason: muscle spasm) gabapentin 800 mg tablet 1,600 mg PO 3XD levothyroxine 50 mcg tablet 50 mcg PO DAILY duloxetine 30 mg capsule,delayed release(DR/EC) 30 mg PO DAILY zolpidem 5 MG tablet 5 mg PO HSP PRN (Reason: Insomnia) Calcium-Folic Acid-Vitamin D [id number] [id number]-mg Wafer 1 wafer PO DAILY methylprednisolone [Medrol (Edward)] 4 mg tablets,dose pack See Rx Instructions .ROUTE .COMPLEX Qty: 21 0RF Rx Instructions: orally per package directions Referrals: Lottie Zavala MD [Primary Care Provider] - Stand Alone Forms: Patient Portal/API
[2024-03-16] MEDS: HYDROCODONE/ACET 5/325 TABLET 1 TAB PO (13:58)
[2024-03-16] MEDS: ONDANSETRON 4 MG ODT SL (13:59)
[2024-03-16 15:20] VITALS: BP 104/54; PULSE 70; RESP 16; O2SAT 93
== END 2024-03-16 15:21 | disposition home or self-care (01) ==
PROVIDERS: Emergency Provider Emergency Medicine; Family Provider Family Medicine; PCP Family Medicine
DX: S86.911A Strain of unspecified muscle(s) and tendon(s) at lower leg level, right leg, initial encounter (principal); X50.1XXA Overexertion from prolonged static or awkward postures, initial encounter; Z96.653 Presence of artificial knee joint, bilateral
CPT/HCPCS: 29530; 73562; 73700; 99284

== ENCOUNTER 2024-03-30 11:56 | Emergency (ER) | payer MEDICARE, OTHER, SELFPAY ==
[2024-03-30 12:05] VITALS: PULSE 66; O2SAT 95
[2024-03-30 12:10] VITALS: BP 145/66; PULSE 64; RESP 18; TEMP 36.7; O2SAT 98; BMI 27.6
--- NOTE | 2024-03-30 12:28 | ED.GENADULT ---
HPI - General Adult General Chief complaint: Eye Problems Stated complaint: Eye Injury Time Seen by Provider: 03/30/24 12:00 Source: patient and EMS Mode of arrival: Ambulatory History of Present Illness HPI narrative: Patient is an 83-year-old female. Not on anticoagulation. Was sent to the emergency department for evaluation of a bruise under her left eye. Patient does not remember any trauma. She did take an Ambien last evening what she states is somewhat unusual for her but she states she woke up this morning at about 0600 hours in the morning. She went to use the restroom. Had no symptoms that time. Stated that she was still feeling somewhat tired so she went back to bed. When she woke up again several hours later she noticed some irritation under her eye. She went an looked in the mirror noticed bruising. Reports no other symptoms. Triage nursing note states that the patient was reporting mild head pain however the patient told me that she was not having any head discomfort. Has some blurriness to her left eye but no pain. Pain with movement of the eye. No dental injuries. No nose pain. Related Data Home Medications Medication Instructions Recorded Confirmed escitalopram oxalate 10 mg tablet 10 mg PO QDAY ##0 04/30/12 03/18/23 (Lexapro) cyanocobalamin (vitamin B-12) 500 500 mcg PO QDAY ##0 07/08/16 03/18/23 mcg tablet (Vitamin B-12) [id number] 500 1 wafer PO DAILY 03/18/23 03/18/23 mg-50 mg-300 unit-1 mg oral wafer (Calcium-Folic Acid-Vitamin D) celecoxib 200 mg capsule 400 mg PO DAILY 03/18/23 03/18/23 cyclobenzaprine 10 mg tablet 10 mg PO ONCE PM PRN muscle spasm 03/18/23 03/18/23 duloxetine 30 mg capsule,delayed 30 mg PO DAILY 03/18/23 03/18/23 release gabapentin 800 mg tablet 1,600 mg PO 3XD 03/18/23 03/18/23 levothyroxine 50 mcg tablet 50 mcg PO DAILY 03/18/23 03/18/23 zolpidem 5 mg tablet 5 mg PO HSP PRN Insomnia 03/18/23 03/18/23 Previous Rx's Medication Instructions Recorded metronidazole 0.75 % topical gel 0.75 % topical QDAY #135 mL 02/25/16 atorvastatin 20 mg tablet (Lipitor) 20 mg PO HS #90 tabs 06/21/16 raloxifene 60 mg tablet (Evista) 60 mg PO QDAY #30 tabs 09/13/16 meclizine 25 mg tablet 25 mg PO TID PRN dizziness #20 tabs 08/10/20 methylprednisolone 4 mg tablets in See Rx Instructions PO .COMPLEX 07/06/23 a dose pack (Medrol (Edward)) #21 ea hydrocodone 5 mg-acetaminophen 325 1 tab PO Q8HR PRN Pain, Moderate 03/16/24 mg tablet #12 tabs ondansetron 4 mg disintegrating 4 mg PO Q8H PRN nausea and 03/16/24 tablet vomiting #10 tabs Allergies Allergy/AdvReac Type Severity Reaction Status Date / Time adhesive AdvReac Severe RASH Verified 03/30/24 12:09 nickel [NICKEL] AdvReac Intermediate RASH Verified 03/30/24 12:09 haloperidol AdvReac Mild HALLUCINATI Verified 03/30/24 12:09 ONS morphine [MORPHINE] AdvReac Unknown Vomiting Verified 03/30/24 12:09 Review of Systems Review of Systems Narrative: See HPI Patient History Social History Smoking Status: Former smoker Smoking Status: Former smoker alcohol intake frequency: 0-2 drinks per day Substance Use Type: does not use Exam Initial Vital Signs Initial Vital Signs: Vital Signs Temperature 98.0 F 03/30/24 12:10 Pulse Rate 64 03/30/24 12:10 Respiratory Rate 18 03/30/24 12:10 Blood Pressure 145/66 H 03/30/24 12:10 Pulse Oximetry 98 03/30/24 12:10 Oxygen Delivery Method Room Air 03/30/24 12:10 HENMT Head: normal to inspection and normocephalic Ears: TM's normal bilaterally Mouth: oral mucosae normal Eyes Other: Patient with a hematoma located in the inferior portion of the left eye. Extraocular muscles are intact. Pupils are equal round reactive cleared has what appears to be a small subconjunctival hemorrhage on the nasal aspect of the left eye. No step-offs noted with palpation of the orbital rim. Skin Other: Hematoma located under left eye Neuro General: patient alert and patient awake Extrem General: normal to inspection and capillary refill normal Course Orders Ordered: ED Orders 03/30/24 12:27 CT facial bones wo con Stat CT head/brain wo con Stat Vital Signs Vital signs: Vital Signs - 8 hr 03/30/24 12:10 Temperature 98.0 F Pulse Rate 64 Respiratory Rate 18 Blood Pressure 145/66 H Pulse Oximetry 98 Oxygen Delivery Method Room Air Medical Decision Making Imaging Data CT scan - head: Radiologist's Impression: PROCEDURE: CT HEAD/BRAIN WO CON INDICATIONS: Left periocular hematoma concern for fall TECHNIQUE: Noncontrast 4.5 mm thick angled axial sections acquired from the foramen magnum to the vertex, with coronal and sagittal reformats. For radiation dose reduction, the following was used: automated exposure control, adjustment of mA and/or kV according to patient size. COMPARISON: [facility], CT, CT FACIAL BONES WO CON, 03/30/2024, 12:34. [facility], CT, CT HEAD/BRAIN WO CON, 07/06/2023, 15:31. FINDINGS: Image quality: Diagnostic. CSF spaces: Basal cisterns are patent. No extra-axial fluid collections. Ventricles are normal in size and shape. Brain: No midline shift. No intracranial masses or hemorrhage. Crowley-white matter interface is normal. Skull and face: Calvarium and visualized facial bones are intact, without suspicious lesions. Soft tissue hematoma along the inferior orbital rim without retro-orbital postseptal fluid collection or edema. Sinuses: Visualized sinuses and mastoids are clear. IMPRESSION: No fracture. Periorbital hematoma without retro-orbital fluid CT facial: Radiologist's Impression: PROCEDURE: CT FACIAL BONES WO CON INDICATIONS: Left periorbital hematoma, concern for fall TECHNIQUE: Noncontrast 2.5 mm thick axial images acquired from the mandible through the frontal sinuses, with coronal and sagittal reformatting. For radiation dose reduction, the following was used: automated exposure control, adjustment of mA and/or kV according to patient size. COMPARISON: None. FINDINGS: Image quality: Excellent. Bones and teeth: Orbital lynn are intact. Sinus lynn show no fracture or deformity. Nasal bones and septum are intact. Visualized portions of the mandible demonstrate no fractures or subluxation. Zygomatic arches are intact. Pterygoid plates are intact. Visualized portions of the skull base and auditory canals are intact. Sinuses: Paranasal sinuses are aerated, without fluid levels, mucosal thickening, or mucoceles. Mastoid air cells are aerated. Soft tissues: Left infraorbital hematoma without extension into the retro-orbital/conal soft tissues. No enlarged lymph nodes. No soft tissue lacerations or debris. Vascular: Visualized vascular structures appear normal in the absence of contrast. Bony vascular foramina and canals are intact. IMPRESSION: Left periorbital hematoma without fracture or extension to the retro-orbital space MDM Narrative Medical decision making narrative: Patient reports that she does not remember falling although she did take Ambien last evening. She has no neck discomfort. Alert and oriented x3. GCS of 15. Does have a contusion under her left eye and a small subconjunctival hemorrhage of the nasal aspect of the left eye over there no step-offs. No other injuries. CT scans negative. Will discharge home with supportive care. Discharge Plan Departure Patient Disposition: Home Clinical Impression: Contusion of eye, left Instructions: DI for Eye Contusion Activity Restrictions/Additional Instructions: You can continue to take all of your medications as directed. There was a potential that she will have continued swelling under the left eye for the next couple days. I do recommend putting ice over the area. Contact your primary doctor for a follow-up. Return to the emergency department for new symptoms. Prescriptions: No Action escitalopram oxalate [Lexapro] 10 MG tablet 10 mg PO QDAY Qty: 0 metronidazole 0.75 % gel 0.75 % Topical QDAY Qty: 135 0RF atorvastatin [Lipitor] 20 MG tablet 20 mg PO HS Qty: 90 3RF cyanocobalamin (vitamin B-12) [Vitamin B-12] 500 MCG tablet 500 mcg PO QDAY Qty: 0 raloxifene [Evista] 60 MG tablet 60 mg PO QDAY Qty: 30 11RF meclizine 25 mg tablet 25 mg PO TID PRN (Reason: dizziness) Qty: 20 0RF celecoxib 200 mg capsule 400 mg PO DAILY cyclobenzaprine 10 mg tablet 10 mg PO ONCE PM PRN (Reason: muscle spasm) gabapentin 800 mg tablet 1,600 mg PO 3XD levothyroxine 50 mcg tablet 50 mcg PO DAILY duloxetine 30 mg capsule,delayed release(DR/EC) 30 mg PO DAILY zolpidem 5 MG tablet 5 mg PO HSP PRN (Reason: Insomnia) Calcium-Folic Acid-Vitamin D [id number]-[id number]-mg Wafer 1 wafer PO DAILY methylprednisolone [Medrol (Edward)] 4 mg tablets,dose pack See Rx Instructions .ROUTE .COMPLEX Qty: 21 0RF Rx Instructions: orally per package directions hydrocodone-acetaminophen 5-325 mg tablet 1 tab PO Q8HR PRN (Reason: Pain, Moderate) Qty: 12 0RF ondansetron 4 mg tablet,disintegrating 4 mg PO Q8H PRN (Reason: nausea and vomiting) Qty: 10 0RF Referrals: Lottie Zavala MD [Primary Care Provider] - Stand Alone Forms: Patient Portal/API
[2024-03-30 12:30] VITALS: BP 143/64; PULSE 66; O2SAT 94
[2024-03-30 13:00] VITALS: PULSE 63; O2SAT 94
[2024-03-30 13:30] VITALS: PULSE 63; O2SAT 93
--- NOTE | 2024-03-30 13:47 | PC.NURSE ---
Left eye swelling/hematoma. Pupils round, equal and reactive.
--- NOTE | 2024-03-30 13:48 | PC.NURSE ---
Hx of cataract surgery
[2024-03-30 16:10] VITALS: BP 126/58; PULSE 70; RESP 16; TEMP 36.6; O2SAT 99
--- NOTE | 2024-03-30 16:10 | PC.NURSE ---
Pupils 3mm and reactive.
== END 2024-03-30 16:11 | disposition home or self-care (01) ==
PROVIDERS: Emergency Provider Emergency Medicine; Family Provider Family Medicine; PCP Family Medicine
DX: S00.12XA Contusion of left eyelid and periocular area, initial encounter (principal); R51.9 Headache, unspecified
CPT/HCPCS: 70450; 70486; 99281; 99284

== ENCOUNTER → 2024-06-18 13:01 | Outpatient (CLI) | payer MEDICARE, OTHER, SELFPAY ==
--- NOTE | 2024-06-18 13:03 | DI.MRI.S_ITS ---
PROCEDURE: MR CERVICAL SPINE WO CON INDICATIONS: Radiculopathy, cervical region TECHNIQUE: Noncontrast sagittal T1 spin echo and T2 fast spin echo, sagittal STIR, foraminal oblique sagittal T2 fast spin echo, and axial gradient echo or T2 fast spin echo through the cervical spine. COMPARISON: [facility], MR, MR CERVICAL SPINE WO CON, 11/16/2022, 12:03. FINDINGS: Image quality: Excellent. Alignment and Curvature: Alignment is unchanged from prior study. Bone Marrow: No gross marrow edema. No acute cervical spine fracture. Spinal Cord: Visualized spinal cord has normal size and signal. No cerebellar tonsillar herniation. Paraspinous Soft Tissues: No paravertebral masses. Prevertebral soft tissues are normal in thickness. C2-C3: There is loss of disc height and disc desiccation. Broad-based, more right-sided disc bulge and bilateral uncovertebral hypertrophic changes are seen causing mild central canal stenosis and moderate to severe bilateral neural foraminal narrowing. Finding is not significantly changed from prior study. C3-C4: Loss of disc height and disc desiccation. Broad-based disc bulge and bilateral uncovertebral hypertrophic changes with [id number]-np-ogfzzide central canal stenosis and moderate to severe bilateral neural foraminal narrowing worse on the right side unchanged from prior study. Bulging disc likely contacting bilateral C4 nerve roots. C4-C5: Loss of disc height and disc desiccation. Broad-based disc bulge and bilateral uncovertebral hypertrophic changes with mild central canal stenosis and moderate to severe bilateral neural foraminal narrowing worse on the right side. Bulging disc likely contacting bilateral C5 nerve roots. C5-C6: Loss of disc height and disc desiccation. Broad-based disc bulge and bilateral uncovertebral hypertrophic changes causing moderate central canal stenosis, severe left-sided neural foraminal narrowing and moderate right-sided neural foraminal narrowing. Bulging disc is seen contacting left C6 and C7 nerve roots and right C6 nerve root. Finding has unchanged or slightly worsened compared to prior study. C6-C7: Loss of disc height and disc desiccation. Broad-based disc bulge and bilateral uncovertebral hypertrophic changes are seen causing iihf-bi-fgqvnmhl central canal stenosis and duct-eq-rbecleev left worse than right bilateral neural foraminal narrowing. Bulging disc likely contacting bilateral C7 nerve roots. C7-T1: Normal appearance. IMPRESSION: 1. No marrow edema. No acute cervical spine fracture or dislocation. No abnormal cervical spinal cord signal. 2. Moderate to severe degenerative disc disease throughout cervical spine causing various degrees of central canal stenosis and bilateral neural foraminal narrowing not significantly changed or slightly worsened compared to prior study in 2022. Dictated by: David Escobar M.D. on 06/18/2024 at 17:43 Approved by: David Escobar M.D. on 06/18/2024 at 17:47
== END ==
PROVIDERS: Family Provider Family Medicine; PCP Family Medicine; Referring Provider Orthopaedic Surgery Orthopaedic Surgery of the Spine; Visit Provider Orthopaedic Surgery Orthopaedic Surgery of the Spine
DX: M50.11 Cervical disc disorder with radiculopathy, high cervical region (principal); M48.02 Spinal stenosis, cervical region
CPT/HCPCS: 72141

== ENCOUNTER 2024-09-20 10:18 | Emergency (ER) | payer MEDICARE, OTHER, SELFPAY ==
[2024-09-20 10:21] VITALS: BP 104/56; PULSE 71; RESP 14; TEMP 36.6; O2SAT 97; BMI 26.4
--- NOTE | 2024-09-20 12:00 | ED.EXTPRO ---
HPI - Extremity Problem <Michelle Cotto PA-C - Last Filed: 09/20/24 14:42> General Chief complaint: Extremity Problem,Nontraumatic Stated complaint: Per patient, Burning in left hand Time Seen by Provider: 09/20/24 11:46 History of Present Illness HPI Narrative: Ms. Ray is a very pleasant 83-year-old female with a past medical history of left-sided cervical radiculopathy s/p left sided C5-6 laminoforaminotomy w/ Dr. Bennett in [facility], chronic left leg hemiplegia who presents to the emergency department for tingling of the left hand that started last night. Patient reports 8 days ago she had a trip and fall on a loose piece of carpet causing her to fall somewhat onto the right side of her body. She felt fine after the fall but she called her surgeon to ask for any recommendations given her recent surgery. They reported that if she developed any neck pain or radicular symptoms then she should come to the emergency department for CT scan. Patient states that she has been fine for the last few days however last night she did develop some burning tingling pain of the left hand similar to her symptoms prior to having the surgery done. At this time she states that the burning has resolved from the left hand but she still does have some seasonal tingling sensation in the 1st 3 digits of the hand worse with turning her head to the left side but resolved when she wears her padded neck brace. She denies headache, visual disturbance, loss of consciousness, nausea or vomiting, fevers or chills, or any other concerns. Related Data Home Medications Medication Instructions Recorded Confirmed escitalopram oxalate 10 mg tablet 10 mg PO QDAY ##0 04/30/12 03/18/23 (Lexapro) cyanocobalamin (vitamin B-12) 500 500 mcg PO QDAY ##0 07/08/16 03/18/23 mcg tablet (Vitamin B-12) [id number] 500 1 wafer PO DAILY 03/18/23 03/18/23 mg-50 mg-300 unit-1 mg oral wafer (Calcium-Folic Acid-Vitamin D) celecoxib 200 mg capsule 400 mg PO DAILY 03/18/23 03/18/23 cyclobenzaprine 10 mg tablet 10 mg PO ONCE PM PRN muscle spasm 03/18/23 03/18/23 duloxetine 30 mg capsule,delayed 30 mg PO DAILY 03/18/23 03/18/23 release gabapentin 800 mg tablet 1,600 mg PO 3XD 03/18/23 03/18/23 levothyroxine 50 mcg tablet 50 mcg PO DAILY 03/18/23 03/18/23 zolpidem 5 mg tablet 5 mg PO HSP PRN Insomnia 03/18/23 03/18/23 Previous Rx's Medication Instructions Recorded metronidazole 0.75 % topical gel 0.75 % topical QDAY #135 mL 02/25/16 atorvastatin 20 mg tablet (Lipitor) 20 mg PO HS #90 tabs 06/21/16 raloxifene 60 mg tablet (Evista) 60 mg PO QDAY #30 tabs 09/13/16 meclizine 25 mg tablet 25 mg PO TID PRN dizziness #20 tabs 08/10/20 methylprednisolone 4 mg tablets in See Rx Instructions PO .COMPLEX 07/06/23 a dose pack (Medrol (Edward)) #21 ea hydrocodone 5 mg-acetaminophen 325 1 tab PO Q8HR PRN Pain, Moderate 03/16/24 mg tablet #12 tabs ondansetron 4 mg disintegrating 4 mg PO Q8H PRN nausea and 03/16/24 tablet vomiting #10 tabs lidocaine 5 % topical patch 1 patch topical DAILY #30 ea 09/20/24 (Lidoderm) Allergies Allergy/AdvReac Type Severity Reaction Status Date / Time adhesive AdvReac Severe RASH Verified 09/20/24 10:21 nickel [NICKEL] AdvReac Intermediate RASH Verified 09/20/24 10:21 haloperidol AdvReac Mild HALLUCINATI Verified 09/20/24 10:21 ONS morphine [MORPHINE] AdvReac Unknown Vomiting Verified 09/20/24 10:21 Review of Systems <Michelle Cotto PA-C - Last Filed: 09/20/24 14:42> Review of Systems ROS Unobtainable: All systems reviewed & are unremarkable except as noted in HPI and below Patient History <Michelle Cotto PA-C - Last Filed: 09/20/24 14:42> Social History Smoking Status: Former smoker Smoking Status: Former smoker alcohol intake frequency: 0-2 drinks per day Exam <DINORA Tony Last Filed: 09/20/24 14:42> Narrative Exam Narrative: GENERAL: 83 year old patient appears stated age. Well-developed patient, in no acute distress. HEAD: Atraumatic. Normocephalic. EYES: Pupils equal, round. Extraocular motions intact. No scleral icterus. No injection or drainage. NECK: Trachea midline. Cervical ROM intact. No midline cervical tenderness. Small cervical incision healed well, clean, dry, intact, no tenderness or surrounding erythema or edema. CARDIOVASCULAR: Regular rate and rhythm. RESPIRATORY: ?Nonlabored respirations. ?Speaking in clear, full sentences. ?Clear to auscultation. Breath sounds equal bilaterally. No wheezes, rales, or rhonchi. ? EXTREMITIES: Strength intact in the distribution of the median, ulnar, radial nerves bilaterally. Reported decreased sensation to light touch in the distribution of the median nerve on the left hand. Strong and equal radial pulses bilaterally and brisk capillary refill. BACK: Nontender without deformity or crepitance. No flank tenderness. NEURO: AOx3. ?Clear speech. Limited flexion strength of the left leg, chronically. SKIN: No rash or erythema of visible areas Initial Vital Signs Initial Vital Signs: Vital Signs Temperature 97.8 F 09/20/24 10:21 Pulse Rate 71 09/20/24 10:21 Respiratory Rate 14 09/20/24 10:21 Blood Pressure 104/56 L 09/20/24 10:21 Pulse Oximetry 97 09/20/24 10:21 Oxygen Delivery Method Room Air 09/20/24 10:21 <Faby Slaughter DO - Last Filed: 09/21/24 22:09> Initial Vital Signs Initial Vital Signs: Vital Signs Temperature 97.8 F 09/20/24 10:21 Pulse Rate 71 09/20/24 10:21 Respiratory Rate 14 09/20/24 10:21 Blood Pressure 104/56 L 09/20/24 10:21 Pulse Oximetry 97 09/20/24 10:21 Oxygen Delivery Method Room Air 09/20/24 10:21 Course <DINORA Tony Last Filed: 09/20/24 14:42> Orders Ordered: Discontinued Medications Lidocaine (Lidocaine 5% Patch) 1 each TOP NOW ONE Stop: 09/20/24 13:26 Last Admin: 09/20/24 13:29 Dose: 1 each Documented By: CHANDLER Vital Signs Vital signs: Vital Signs - 8 hr 09/20/24 10:21 09/20/24 13:34 Temperature 97.8 F Pulse Rate 71 64 Respiratory Rate 14 16 Blood Pressure 104/56 L 120/59 L Pulse Oximetry 97 97 Oxygen Delivery Method Room Air Room Air <Faby Slaughter DO - Last Filed: 09/21/24 22:09> Orders Ordered: Discontinued Medications Lidocaine (Lidocaine 5% Patch) 1 each TOP NOW ONE Stop: 09/20/24 13:26 Last Admin: 09/20/24 13:29 Dose: 1 each Documented By: CHANDLER Vital Signs Vital signs: Vital Signs - 8 hr 09/20/24 10:21 09/20/24 13:34 Temperature 97.8 F Pulse Rate 71 64 Respiratory Rate 14 16 Blood Pressure 104/56 L 120/59 L Pulse Oximetry 97 97 Oxygen Delivery Method Room Air Room Air MDM - Extremity (Nontraumatic) <Michelle Cotto PA-C - Last Filed: 09/20/24 14:42> Medical Records Attestation: I reviewed the patient's medical records. Imaging Data CT - cervical spine: Radiologist's Impression: PROCEDURE: CT CERVICAL SPINE WO CON INDICATIONS: fall 8 days ago; L radiculopathy; recent laminoforaminotomy TECHNIQUE: Noncontrast 3 mm thick sections acquired from the skull base to the T4 level. Sagittal and coronal reformats were then constructed. For radiation dose reduction, the following was used: automated exposure control, adjustment of mA and/or kV according to patient size. COMPARISON: [facility], CT, CT CERVICAL SPINE WO CON, 07/06/2023, 15:31. FINDINGS: Image quality: Excellent. Bones: No fractures or dislocations. Visualized superior ribs are intact. Left-sided laminoforaminoectomy . Mild to moderate, multilevel degenerative disc disease and diffuse facet arthrosis. Soft tissues: Prevertebral soft tissues are normal in thickness. No paravertebral hematomas. No apical pneumothoraces. IMPRESSION: Left-sided laminoforaminoectomy at C5-6, without complication. No acute, displaced fracture or traumatic subluxation. Mild to moderate, multilevel degenerative disc disease and diffuse facet arthrosis. MDM Narrative Medical decision making narrative: 83 year-old female with a past medical history of left-sided cervical radiculopathy s/p left sided C5-6 laminoforaminotomy w/ Dr. Bennett in [place], [place], chronic left leg hemiplegia who presents to the emergency department for tingling of the left hand that started last night, precipitated by a mechanical fall 8 days prior, here for CT scan as recommended by her surgeon. Differential diagnosis includes but is not limited to cervical radiculopathy, cervical injury, cervical strain or sprain, etc.. On exam the patient is in no acute distress, nontoxic appearing, vital signs appropriate, surgical incision without signs of infection, range of motion of cervical spine intact, strength intact of bilateral hands but decreased sensation in the median nerve distribution of the left hand which patient reports for her symptoms prior to surgery. We will obtain CT imaging to rule out acute bony abnormality given recent fall. Patient declines the need for any pain medication at this time, she is currently taking gabapentin, Celebrex, and using a padded neck brace. Later patient was interested in trialing Lidoderm and she was provided with this. CT reveals no complication, no acute displaced fracture or traumatic subluxation and [id number] multilevel degenerative disc disease and diffuse facet arthrosis. As patient's symptoms are significantly improved at this time, we will not treat with steroids instead we will have her continue her Celebrex, gabapentin, we will incorporate Lidoderm. Her imaging was sent her surgeon. We discussed strict ED return precautions. She verbalized understanding all information is requesting discharge home. She is stable for discharge home at this time. Discharge Plan Departure Patient Disposition: Home Clinical Impression: Left cervical radiculopathy, Fall due to tripping on loose carpet Instructions: DI for Cervical Radiculopathy Activity Restrictions/Additional Instructions: Dear Ms. Ray, Thank you for coming to the emergency department today. Today you were evaluated for left hand burning after fall 8 days ago and recent surgery. The CT scan of your cervical spine reveals no acute abnormalities which is very reassuring. I would like you to continue taking your home medications consisting of Celebrex, gabapentin, and your oxycodone if needed in addition to the newly prescribed lidocaine patches. You may also use heat therapy to help loosen the muscles in the neck as needed. Please call your surgeon to update them and come back to the emergency department if you have any new or worsening symptoms. Please follow up with your primary care doctor within the next 2-3 days for ER follow-up. (If you do not have a PCP you can call [phone]. ?to schedule an appointment with an [facility] Primary Care Provider) IF YOU DEVELOP ANY NEW OR WORSENING SYMPTOMS, RETURN TO THE ER! Please read the attached instructions, they highlight more specific treatments and interventions for you at home. Thank you for letting me participate in your care, Michelle Cotto PA-C Prescriptions: New lidocaine [Lidoderm] 5 % adhesive patch,medicated 1 patch topical DAILY Qty: 30 0RF Rx Instructions: leave on most painful area for up to 12 hrs No Action escitalopram oxalate [Lexapro] 10 MG tablet 10 mg PO QDAY Qty: 0 metronidazole 0.75 % gel 0.75 % Topical QDAY Qty: 135 0RF atorvastatin [Lipitor] 20 MG tablet 20 mg PO HS Qty: 90 3RF cyanocobalamin (vitamin B-12) [Vitamin B-12] 500 MCG tablet 500 mcg PO QDAY Qty: 0 raloxifene [Evista] 60 MG tablet 60 mg PO QDAY Qty: 30 11RF meclizine 25 mg tablet 25 mg PO TID PRN (Reason: dizziness) Qty: 20 0RF celecoxib 200 mg capsule 400 mg PO DAILY cyclobenzaprine 10 mg tablet 10 mg PO ONCE PM PRN (Reason: muscle spasm) gabapentin 800 mg tablet 1,600 mg PO 3XD levothyroxine 50 mcg tablet 50 mcg PO DAILY duloxetine 30 mg capsule,delayed release(DR/EC) 30 mg PO DAILY zolpidem 5 MG tablet 5 mg PO HSP PRN (Reason: Insomnia) Calcium-Folic Acid-Vitamin D [id number]-mg Wafer 1 wafer PO DAILY methylprednisolone [Medrol (Edward)] 4 mg tablets,dose pack See Rx Instructions .ROUTE .COMPLEX Qty: 21 0RF Rx Instructions: orally per package directions hydrocodone-acetaminophen 5-325 mg tablet 1 tab PO Q8HR PRN (Reason: Pain, Moderate) Qty: 12 0RF ondansetron 4 mg tablet,disintegrating 4 mg PO Q8H PRN (Reason: nausea and vomiting) Qty: 10 0RF Referrals: Lottie Zavala MD [Primary Care Provider] - Stand Alone Forms: Patient Portal/API/Survey ED Sign-out <Faby Slaughter DO - Last Filed: 09/21/24 22:09> Cosign ED Attending Cosignature Attestation: I was available for consultation.
--- NOTE | 2024-09-20 12:11 | DI.CT.S_ITS ---
PROCEDURE: CT CERVICAL SPINE WO CON INDICATIONS: fall 8 days ago; L radiculopathy; recent laminoforaminotomy TECHNIQUE: Noncontrast 3 mm thick sections acquired from the skull base to the T4 level. Sagittal and coronal reformats were then constructed. For radiation dose reduction, the following was used: automated exposure control, adjustment of mA and/or kV according to patient size. COMPARISON: [facility], CT, CT CERVICAL SPINE WO CON, 07/06/2023, 15:31. FINDINGS: Image quality: Excellent. Bones: No fractures or dislocations. Visualized superior ribs are intact. Left-sided laminoforaminoectomy . Mild to moderate, multilevel degenerative disc disease and diffuse facet arthrosis. Soft tissues: Prevertebral soft tissues are normal in thickness. No paravertebral hematomas. No apical pneumothoraces. IMPRESSION: Left-sided laminoforaminoectomy at C5-6, without complication. No acute, displaced fracture or traumatic subluxation. Mild to moderate, multilevel degenerative disc disease and diffuse facet arthrosis. Dictated by: Refugio Carcamo M.D. on 09/20/2024 at 12:52 Approved by: Refugio Carcamo M.D. on 09/20/2024 at 12:55
[2024-09-20] MEDS: LIDOCAINE 5% PATCH 1 EACH TOP (13:29)
[2024-09-20 13:34] VITALS: BP 120/59; PULSE 64; RESP 16; O2SAT 97
== END 2024-09-20 13:38 | disposition home or self-care (01) ==
PROVIDERS: Emergency Provider Physician Assistant; Family Provider Family Medicine; PCP Family Medicine
DX: M54.12 Radiculopathy, cervical region (principal); W01.0XXA Fall on same level from slipping, tripping and stumbling without subsequent striking against object, initial encounter; G81.94 Hemiplegia, unspecified affecting left nondominant side; Z87.891 Personal history of nicotine dependence
CPT/HCPCS: 72125; 99282; 99284

== ENCOUNTER → 2024-12-13 11:36 | Outpatient (CLI) | payer MEDICARE, OTHER, SELFPAY ==
--- NOTE | 2024-12-13 11:39 | DI.MRI.S_ITS ---
PROCEDURE: MR CERVICAL SPINE WO CON INDICATIONS: Cervical radiculopathy TECHNIQUE: Noncontrast sagittal T1 spin echo and T2 fast spin echo, sagittal STIR, foraminal oblique sagittal T2 fast spin echo, and axial gradient echo or T2 fast spin echo through the cervical spine. COMPARISON: [facility], MR, MR CERVICAL SPINE WO CON, 06/18/2024, 13:52. FINDINGS: Image quality: Excellent. Alignment and Curvature: Straightening of the normal cervical lordosis. Minimal anterolisthesis of C4 on C5, stable. Bone Marrow: Multilevel degenerative endplate changes. Marrow demonstrates normal overall signal. Spinal Cord: Visualized spinal cord has normal size and signal. No cerebellar tonsillar herniation. Paraspinous Soft Tissues: No paravertebral masses. Prevertebral soft tissues are normal in thickness. C2-C3: Disc desiccation and posterior disc osteophyte complex asymmetric to the right. Facet and uncovertebral arthropathy. Mild central canal stenosis. Moderate to severe bilateral neural foraminal stenosis is stable. C3-C4: Disc desiccation and posterior disc osteophyte complex. Facet and uncovertebral arthropathy. [id number] central canal stenosis is stable. Moderate to severe bilateral neural foraminal stenosis is stable. C4-C5: Disc desiccation and mild posterior disc osteophyte complex. Facet and uncovertebral arthropathy. Mild central canal stenosis. Moderate to severe bilateral neural foraminal stenosis. Stable compared to prior. C5-C6: Disc desiccation and severe height loss. Posterior disc osteophyte complex. Facet and uncovertebral arthropathy. Moderate central canal stenosis. Severe left and moderate right neural foraminal stenosis is stable. C6-C7: Disc desiccation and moderate height loss. Posterior disc osteophyte complex. Facet and uncovertebral arthropathy. Mild to moderate central canal stenosis. [id number] bilateral neural foraminal stenosis. Stable compared to prior. C7-T1: Disc desiccation and posterior disc osteophyte complex. Facet uncovertebral arthropathy. No significant central canal or neural foraminal stenosis. IMPRESSION: 1. Multilevel degenerative changes of the cervical spine are stable compared to prior exam, as described above. 2. Moderate central canal stenosis at C5-C6. 3. Multilevel high-grade neural foraminal stenosis. Dictated by: Gino Hyatt M.D. on 12/13/2024 at 13:34 Approved by: Gino Hyatt M.D. on 12/13/2024 at 13:38
== END ==
LOC: MRI 11:37
PROVIDERS: Family Provider Family Medicine; PCP Family Medicine
DX: M47.22 Other spondylosis with radiculopathy, cervical region (principal); M48.02 Spinal stenosis, cervical region
CPT/HCPCS: 72141

== ENCOUNTER → 2025-05-06 08:55 | Outpatient (CLI) | payer MEDICARE, OTHER, SELFPAY ==
--- NOTE | 2025-05-06 08:57 | DI.RAD.S_ITS ---
PROCEDURE: XR LUMBAR SPINE MIN 4V INDICATIONS: Radiculopathy, lumbar region TECHNIQUE: 5 views of the lumbar spine were acquired, including bilateral oblique views. COMPARISON: None. FINDINGS: Lumbar spine curvature and alignment: Long fusion between T10 and S2 provided by multiple pedicle screws and long rods appreciated. No postsurgical complication- alignment is anatomic. Bones: Mild T11-T12 and minimal L1 compression fractures are likely chronic Disc spaces Increased density is present in the L1-2 through L5-S1 discs which could indicate poorly visualized intervertebral fusion changes and/or calcification from severe disc degeneration. The L2-3 through L5-S1 facets are solidly fused Soft tissues: Cerclage wires present over the posterior elements at L3 through S1 with probable antibiotic beads. IMPRESSION: Postsurgical and chronic findings. Consider MRI with metal reduction artifact sequences in this complicated patient. Dictated by: Asael Saldana M.D. on 05/06/2025 at 13:14 Approved by: Asael Saldana M.D. on 05/06/2025 at 13:18
== END ==
LOC: RAD 08:56
PROVIDERS: PCP Family Medicine; Referring Provider Electrodiagnostic Medicine; Visit Provider Electrodiagnostic Medicine
DX: M54.16 Radiculopathy, lumbar region (principal); M48.54XA Collapsed vertebra, not elsewhere classified, thoracic region, initial encounter for fracture; Z98.1 Arthrodesis status
CPT/HCPCS: 72110

== ENCOUNTER → 2025-06-28 13:51 | Outpatient (CLI) | payer MEDICARE, OTHER, SELFPAY ==
--- NOTE | 2025-06-28 13:53 | DI.MRI.S_ITS ---
PROCEDURE: MR THORACIC SPINE WO CON INDICATIONS: radiculopathy TECHNIQUE: Noncontrast sagittal T1 spine echo and T2 fast spin echo, sagittal STIR, and T2 fast spin echo through the thoracic spine. COMPARISON: None. FINDINGS: Image quality: Excellent Posterior fusion instrumentation extending from T10 to the lumbar spine, partially visualized in the inferior aspect. Prior screw track in T8 and T9 vertebral body. Interbody spacer at L2-3. Mild levoscoliosis of the upper thoracic spine. Slightly exaggerated kyphosis of the thoracic spine. Vertebral body height of the thoracic spine are well maintained. There is marked marrow edema of T1, T2, and T3 vertebral body, nonspecific and may be degenerative. Multilevel disc bulge and disc desiccation. Thoracic cord : Grossly normal in signal. Central canal stenosis: Mild at T1-2, T2-3, T5-6. Large left paracentral posterior disc osteophyte complex at T7-8, resulting in mild central canal stenosis. Right neural foraminal stenosis: Mild at T1-2, T2-3, T5-6. Left neural foraminal stenosis: Severe at T1-2, mild at T2-3. Multilevel disc bulge of the lower cervical spine, most pronounced at C6-7, where there is likely moderate central canal stenosis, incompletely evaluated on sagittal view only. Other soft tissue findings: Dilated common bile duct, measuring up to 1.1 cm. Small left renal cysts. IMPRESSION: 1. Postprocedure changes, partially visualized. 2. Multilevel degenerative changes, most pronounced at T1-2, where there is mild central canal stenosis, and mild right and severe left neural foraminal stenosis. 3. Dilated common bile duct, incompletely evaluated. Dictated by: Randee Pizarro M.D. on 06/30/2025 at 12:18 Approved by: Randee Pizarro M.D. on 06/30/2025 at 12:33
--- NOTE | 2025-06-28 13:53 | DI.MRI.S_ITS ---
PROCEDURE: MR LUMBAR SPINE WO CON INDICATIONS: radiculopathy TECHNIQUE: Noncontrast sagittal T1 spin echo and T2 fast echo, sagittal STIR, and T2 fast spin echo through the lumbar spine. In cases with scoliosis, additional coronal T2 fast spin echo may be performed. COMPARISON: [facility], MR, MR CERVICAL SPINE WO CON, 12/13/2024, 11:46. FINDINGS: Image quality: Excellent Posterior fusion instrumentation, extending from the thoracic spine, through bilateral sacroiliac joint. Interbody spacer at L2-3. Posterior decompression extending from L2-L5. Mild retrolisthesis of L1 on L2. Partial osseous fusion of L2-3, L3-4, and L4-5 vertebral body. Vertebral body heights are well maintained. Marrow signal is grossly normal for age. Conus terminates at the level of L1-2, and is unremarkable. Right neural foraminal stenosis: None. Left neural foraminal stenosis: None. Axial images T12-L1: No central canal stenosis. L1-2: No central canal stenosis. L2-3: Posterior decompression. No central canal stenosis. L3-4: Posterior decompression. No central canal stenosis. L4-5: Posterior decompression. No central canal stenosis. L5-S1: No central canal stenosis. Empty thecal sac sign at the lower lumbar spine, raising concern for arachnoiditis. Visualized sacrum is intact. Dilated common bile duct. Likely right peripelvic cyst. Multiple small left renal cyst. 2.6 cm infrarenal abdominal ectasia. IMPRESSION: 1. Postprocedure changes described above. 2. Findings concerning for arachnoiditis. 3. No central canal or neural foraminal stenosis in the lumbar spine. Dictated by: Randee Pizarro M.D. on 06/30/2025 at 12:33 Approved by: Randee Pizarro M.D. on 06/30/2025 at 12:45
== END ==
LOC: MRI 13:51
PROVIDERS: PCP Family Medicine; Referring Provider Family Medicine; Visit Provider Electrodiagnostic Medicine
DX: M47.24 Other spondylosis with radiculopathy, thoracic region (principal); M54.16 Radiculopathy, lumbar region; M48.04 Spinal stenosis, thoracic region; K83.8 Other specified diseases of biliary tract; N28.1 Cyst of kidney, acquired; I77.811 Abdominal aortic ectasia; Z98.1 Arthrodesis status
CPT/HCPCS: 72146; 72148